=== PATIENT | female | born 1955 | race Caucasian/White ===

== ENCOUNTER 2024-03-25 00:10 | Day surgery (SDC) | payer MEDICARE, SELFPAY ==
[2024-03-09 13:06] VITALS: BMI 23.1
[2024-03-25 06:18] VITALS: BMI 22.5
[2024-03-25] MEDS: LACTATED RINGERS 1,000 ML 150 ML IV CONT (06:28)
--- NOTE | 2024-03-25 07:23 | P.PNAN_ITS ---
Anes - Initial Pre Proc Eval Procedure: Operation Date: 03/25/24 07:30 Proposed Procedures p Colonoscopy - Kai Ramesh MD Date/Time: 03/25/24 07:23 Surgeon: Kai Ramesh MD Pre Op Diagnosis: other fecal abnormalities, neoplasm screening Patient Data Age: 68 Gender: F Height: 1.68 m Weight: 63.3 kg Allergies Allergy/AdvReac Type Severity Reaction Status Date / Time No Known Allergies Verified 03/25/24 06:16 Home Medications Medication Instructions Recorded Confirmed Type alendronate 70 mg-cholecalciferol 1 tablet PO WEEKLY 03/09/24 03/25/24 History (vitamin D3) 2,800 unit tablet aspirin 81 mg tablet,delayed 81 mg PO DAILY 03/09/24 03/25/24 History release atorvastatin 10 mg tablet 10 mg PO DAILY 03/09/24 03/25/24 History multivitamin with minerals-folic 1 tablet PO DAILY 03/09/24 03/25/24 History acid 80 mcg chewable tablet (Centrum Adult 50 Plus) Patient hx anesthesia problems: none Family hx anesthesia problems: none Results Review: All pre-operative results and documents have been reviewed as part of the pre- operative evaluation. PMF Social History Social History Smoking packs per day: 1.5 Smoking cigarettes per day: 30.0 Additional smoking assessment comments: age 40 Alcohol intake: current Alcohol use details: rarely Living arrangements: with family Spiritual care concerns: No Anes - Eval Final PreProcedure Day of Procedure 03/25/24 07:23 Patient weight: normal Heart: regular rate and rhythm Lungs: clear to auscultation Airway: Mallampati scale class II Neurological: alert and oriented Last oral intake: >/= 8 hours ASA classification: II Emergent: no Anesthetic plan: proceed Anesthesia type and monitoring: general GIVS and standard monitoring Results Review: All pre-operative results and documents have been reviewed as part of the pre- operative evaluation. Informed Consent: The patient's anesthetic plan and its attendant risks and benefits were discussed with the patient/family/POA. Questions were solicited and answers provided to the satisfaction of the patient/family/POA.
--- NOTE | 2024-03-25 07:27 | PM.HPGS ---
History of Present Illness History of Present Illness Consent: Risks, benefits, and alternatives have been discussed and questions answered. Patient agrees to proceed with procedure. Chief complaint: other fecal abnormalities, neoplasm screening Narrative: Marylin Solis is a 68 year old female with last colonoscopy 10 years ago, cologuard + Review of Systems Review of Systems: All systems reviewed & are unremarkable except as noted in HPI and below PMFSH Past Medical History Medical History (Updated 03/25/24 @ 07:28 by Kai Ramesh MD) Positive colorectal cancer screening using Cologuard test Social History Social History Smoking packs per day: 1.5 Smoking cigarettes per day: 30.0 Additional smoking assessment comments: age 40 Alcohol intake: current Alcohol use details: rarely Living arrangements: with family Spiritual care concerns: No Meds Home Medications and Allergies Home Medications Medication Instructions Recorded Confirmed Type alendronate 70 mg-cholecalciferol 1 tablet PO WEEKLY 03/09/24 03/25/24 History (vitamin D3) 2,800 unit tablet aspirin 81 mg tablet,delayed 81 mg PO DAILY 03/09/24 03/25/24 History release atorvastatin 10 mg tablet 10 mg PO DAILY 03/09/24 03/25/24 History multivitamin with minerals-folic 1 tablet PO DAILY 03/09/24 03/25/24 History acid 80 mcg chewable tablet (Centrum Adult 50 Plus) Allergies Allergy/AdvReac Type Severity Reaction Status Date / Time No Known Allergies Verified 03/25/24 06:16 Exam Const: General: comfortable and no acute distress HENMT: Face/Nose/Sinus: Normal nares present Eyes: General: appearance normal, both eyes and all related structures Neck: Neck: no JVD Resp: Auscultation: clear to auscultation bilaterally Cardio: Rate: regular rate Rhythm: regular rhythm GI: Inspection: non-distended GI Palp: Yes Soft to palpation Skin: General skin exam: normal color Neuro: General: gait normal Speech: normal speech Extrem: General: normal to inspection Psych: Mental Status: mental status grossly normal Assessment and Plan Assessment and plan (1) Positive colorectal cancer screening using Cologuard test: Code(s): R19.5 - Other fecal abnormalities Status: Acute Assessment and Plan: colonoscopy
[2024-03-25 07:39] VITALS: BP 108/53; PULSE 68; RESP 16; O2SAT 100
[2024-03-25 07:49] VITALS: BP 95/49; PULSE 59; RESP 15; O2SAT 100
[2024-03-25 07:56] VITALS: BP 110/56; PULSE 68; RESP 22; O2SAT 100
== END 2024-03-25 08:06 | disposition home or self-care (01) ==
PROVIDERS: PCP Internal Medicine; Visit Provider Internal Medicine Gastroenterology
PROC: 0DJD8ZZ Inspection of Lower Intestinal Tract, Via Natural or Artificial Opening Endoscopic (ICD-10-PCS; CPT 45378; principal; 2024-03-25 07:30)
DX: Z12.11 Encounter for screening for malignant neoplasm of colon (principal); R19.5 Other fecal abnormalities; D12.4 Benign neoplasm of descending colon; K64.8 Other hemorrhoids; Z79.82 Long term (current) use of aspirin
CPT/HCPCS: 45380; 88305; J2704; J7120

== ENCOUNTER 2024-08-09 06:59 | Outpatient (CLI) | payer MEDICARE, SELFPAY ==
--- NOTE | ~2024-08-09 | DEXA_ITS ---
Bone Density Report Name: HANS SAUCEDO Age: 69 Sex: Female Ethnicity: White Date of : 1955 Indication: postmenopausal; screening for osteoporosis; parental hip fracture; height loss; hysterectomy; Referring Provider: MARIAHARMAN Study: Bone densitometry was performed. Exam Date: August 09, 2024 Accession number: [id number] Bone Density: Region BMD T-score Z-score Classification AP Spine(L1-L4) 0.921 -1.1 0.8 Osteopenia Femoral Neck (Left) 0.764 -0.8 0.9 Normal Total Hip (Left) 0.773 -1.4 0.0 Osteopenia Femoral Neck (Right) 0.694 -1.4 0.3 Osteopenia Total Hip (Right) 0.776 -1.4 0.0 Osteopenia Femoral Neck Mean 0.729 -1.1 0.6 Osteopenia Total Hip Mean 0.774 -1.4 0.0 Osteopenia World Health Organization criteria for BMD impression classify patients as: Normal (T-score at or above -1.0), Osteopenia (T-score between -1.0 and -2.5), or Osteoporosis (T-score at or below -2.5). 10-year Fracture Risk(1): Major Osteoporotic Fracture 15% Hip Fracture 1.8% Reported Risk Factors: [place] (), Neck BMD=0.694, BMI=23.5, parental fracture (1) FRAX(R) Version 3.08. Fracture probability calculated for an untreated patient. Fracture probability may be lower if the patient has received treatment. Clinical Information Provided by Patient: Parent has had a hip fracture Has used the following medications: Vitamin D, multi Has the following medical conditions: Hysterectomy Patient maximum height was 66 Menopause Age: 51 No regular weight bearing exercise Drinks caffeinated beverages Onset of menses at age 13 Number of children 3 Impression: The patient has low bone mass, based on the Left Total Hip T-score. The patient has risk factors, including: parental hip fracture. Discussion: BONE DENSITY IS LOW AT ONE OR MORE SKELETAL SITES. This patient's lowest T-score is low at one or more skeletal sites. It meets the World Health Organization's (WHO) criteria for ?low bone mass? (T-score between -1.0 and -2.5). The patient's 10-year risk of fracture as calculated by FRAX is less than the threshold where pharmacological therapy is recommended by the National Osteoporosis Foundation (NOF). However, all treatment decisions require clinical judgment and consideration of individual patient factors, including patient preferences, comorbidities, previous drug use, risk factors not captured in the FRAX model (e.g., frailty, falls, vitamin D deficiency, increased bone turnover, interval significant decline in bone density) and possible under or overestimation of fracture risk by FRAX. The patient should follow a healthful lifestyle (good nutrition with adequate calcium and vitamin D, and appropriate weight-bearing exercise). Follow-Up: Consider repeating this study in 2 to 3 years to reassess this patient's status, or sooner if there is some new clinical indication. Reported by: DEBO on 08/09/2024 7:44:00 AM. Reviewed, dictated and finalized at location A.
== END 2024-08-09 07:00 | disposition home or self-care (01) ==
PROVIDERS: PCP Internal Medicine; Visit Provider Internal Medicine
DX: Z78.0 Asymptomatic menopausal state (principal); M85.89 Other specified disorders of bone density and structure, multiple sites
CPT/HCPCS: 77080

== ENCOUNTER 2024-11-24 08:23 | Outpatient (CLI) | payer MEDICARE, SELFPAY ==
--- NOTE | ~2024-11-24 | US_ITS ---
EXAM: ABDOMEN ULTRASOUND HISTORY: LFT ELEVATION COMPARISON: None FINDINGS: LIVER: The liver is unremarkable in echogenicity and size measuring 16 cm in longitudinal dimension. The contour of the liver surface is smooth. The portal vein is patent, demonstrating hepatopedal flow. GALLBLADDER: No stones are identified within the gallbladder, which is otherwise unremarkable. No gallbladder wall thickening or pericholecystic fluid. BILE DUCTS: Common bile duct measures 4.1mm. PANCREAS: Limited evaluation of the pancreas secondary to overlying bowel gas IMPRESSION: Limited evaluation of the pancreas secondary to overlying bowel gas. Examination is otherwise unremarkable, as detailed above. Reviewed, dictated and finalized at location A. GER OF SUPPLY CHAIN
== END 2024-11-24 08:24 | disposition home or self-care (01) ==
LOC: GOSHIMG 08:23
PROVIDERS: PCP Internal Medicine; Visit Provider Internal Medicine
DX: R79.89 Other specified abnormal findings of blood chemistry (principal)
CPT/HCPCS: 76705

== ENCOUNTER 2025-04-10 10:35 | Outpatient (CLI) | payer MEDICARE, SELFPAY ==
--- OUTSIDE RECORDS SUMMARY | 2025-04-10 10:49 | XMS_ITS | Clinical Summary ---
Author Organization [facility] Address [address] [place] [address] Phone Care Team Providers Care Team Psychologist Name Role Phone Tom Black MD Primary Care Provider [phone] Social History Tobacco Use Types Packs/Day Years Used Date Smoking Tobacco: Never Assessed Comments No Sex and Gender Information Value Date Recorded Sex Assigned at Not on file Legal Sex Female 3:08 PM ROPEMAN Gender Identity Not on file Sexual Orientation Not on file Plan of Treatment Health Maintenance Due Date Last Done Comments DEXA Bone Density 1955 Hepatitis C Virus (HCV) Screening 1955 Colonoscopy 2001 Colorectal Cancer Screening 2001 Cologuard 2006 Immunochemical Fecal Occult Blood 2006 Mammogram 11/15/2022 11/15/2020 Influenza Immunization (#1) 2024 SARS-COV-2 Immunization ( season) 2024 06/15/2023, 06/18/2022, 07/26/2021, Additional history exists Respiratory Syncytial Virus (RSV) Immunization (Adult) (1 - 1-dose 75+ series) 2031 DTaP/Tdap/Td Immunization Discontinued 04/29/2021 TdaP Immunization Completed 04/29/2021 Pneumococcal Immunization (50+ years) Completed 05/19/2022 Pneumococcal Immunization Combined Discontinued 05/19/2022 Zoster Immunization Completed 03/31/2023, Hepatitis B Immunization Aged Out No longer eligible based on patient's age to complete this topic Meningococcal Immunization (ACWY) Aged Out No longer eligible based on patient's age to complete this topic Rotavirus Immunization Aged Out No lo nger eligible based on patient's age to complete this topic Procedures Procedure Name Priority Date/Time Associated Diagnosis Comments LATANYA SCREENING NEAL W IMPL DIGITAL W CAD W FLAVIA Routine 11/15/2020 9:55 AM ROPEMAN Encounter for screening mammogram for malignant neoplasm of breast from Last 3 Months or Most Recently Relevant to Health Maintenance Results * LATANYA SCREENING NEAL W IMPL DIGITAL W CAD W FLAVIA (11/15/2020 9:55 AM ROPEMAN) Anatomical Region Laterality Modality breast Bilateral Mammography 11/15/2020 9:07 AM ROPEMAN Addenda Addendum by Debbie Price MD on 02/15/2021 1:22 PM CDT THIS REPORT HAS BEEN AMENDED. AMENDMENT: 02/15/2021 Debbie Price M.D. 2D digital mammographic views, as well as 3D digital tomosynthesis were performed in the CC and MLO projections. Amended BI-RADS: 1 Negative - LATANYA SCREENING NEAL W IMPL DIGITAL W CAD W FLAVIA BILATERAL DIGITAL SCREENING MAMMOGRAM 3D/2D WITH CAD WITH MEDIOLATERAL OBLIQUE CRANIOCAUDAL: 11/15/2020 The study was acquired using digital technology and interpreted from soft copy. Current study was also evaluated with ICAD version 7.2. 2D digital mammographic views, as well as 3D digital tomosynthesis were performed in the CC and MLO projections. CLINICAL: Routine screening. Patient has no complaints. Personal history of cervical cancer. No family history of breast cancer. COMPARISONS: Comparison is made to exam dated: 10/29/2017 [facility]. BREAST TISSUE:There are scattered fibroglandular densities in both breasts. FINDINGS: Bilateral breast implants are stable. No significant masses, calcifications, or other findings are seen in either breast. There has been no significant interval change. IMPRESSION: BI-RAD 1 NEGATIVE There is no mammographic evidence of malignancy. A 1 year screening mammogram is recommended. The patient has been or will be contacted. The patient will be entered into a reminder system with a target due date of 1 year for her next screening exam. Electronically signed by: Debbie parker/penrad:11/23/2020 08:22:12 Terrazzo Helper: Gifty PRADO)(Ileana), [facility]: Normal Exam Reading location: [facility] BI-RADS: 1 Negative Narrative 11/23/2020 10:32 AM ROPEMAN - [facility] SCREENING NEAL W IMPL DIGITAL W CAD W FLAVIA BILATERAL DIGITAL SCREENING MAMMOGRAM 3D/2D WITH CAD WITH MEDIOLATERAL OBLIQUE CRANIOCAUDAL: 11/15/2020 The study was acquired using digital technology and interpreted from soft copy. Current study was also evaluated with ICAD version 7.2. CLINICAL: Routine screening. Patient has no complaints. Personal history of cervical cancer. No family history of breast cancer. COMPARISONS: Comparison is made to exam dated: 10/29/2017 [facility]. BREAST TISSUE:There are scattered fibroglandular densities in both breasts. FINDINGS: Bilateral breast implants are stable. No significant masses, calcifications, or other findings are seen in either breast. There has been no significant interval change. IMPRESSION: BI-RAD 1 NEGATIVE There is no mammographic evidence of malignancy. A 1 year screening mammogram is recommended. The patient has been or will be contacted. The patient will be entered into a reminder system with a target due date of 1 year for her next screening exam. Electronically signed by: Debbie Price M.D. ab/penrad:11/23/2020 08:22:12 Terrazzo Helper: Gifty PRADO)(Ileana), [facility]: Normal Exam Reading location: [facility] BI-RADS: 1 Negative Procedure Note Debbie Price MD - 11/23/2020 - [facility] SCREENING NEAL W IMPL DIGITAL W CAD W FLAVIA BILATERAL DIGITAL SCREENING MAMMOGRAM 3D/2D WITH CAD WITH MEDIOLATERAL OBLIQUE CRANIOCAUDAL: 11/15/2020 The study was acquired using digital technology and interpreted from soft copy. Current study was also evaluated with ICAD version 7.2. CLINICAL: Routine screening. Patient has no complaints. Personal history of cervical cancer. No family history of breast cancer. COMPARISONS: Comparison is made to exam dated: 10/29/2017 [facility]. BREAST TISSUE:There are scattered fibroglandular densities in both breasts. FINDINGS: Bilateral breast implants are stable. No significant masses, calcifications, or other findings are seen in either breast. There has been no significant interval change. IMPRESSION: BI-RAD 1 NEGATIVE There is no mammographic evidence of malignancy. A 1 year screening mammogram is recommended. The patient has been or will be contacted. The patient will be entered into a reminder system with a target due date of 1 year for her next screening exam. Electronically signed by: Debbie parker/melchor:11/23/2020 08:22:12 Terrazzo Helper: Gifty Davidson RT(R)(M), [facility] letter sent: Normal Exam Reading location: [facility] BI-RADS: 1 Negative Tom Black MD IMG MAMMO ORDERABLES Edited R esult - Final from Last 3 Months or Most Recently Relevant to Health Maintenance Insurance MEDICARE C [facility] Care Teams Team Psychologist Relationship Specialty Start Date End Date Tom Black MD [address] [place] [address] PCP - General Internal Medicine 10/24/20
--- OUTSIDE RECORDS SUMMARY | 2025-04-10 10:49 | XMS_ITS | Data Portability ---
Author Organization [facility] NITESHNitza Address [address] [place] [address] Care Team Providers Care Residence Director Name Role Phone TOM SIFUENTES Primary Care Provider Assessment No assessment recorded. Plan of Treatment Reminders Order Date Submit Date Provider Last Modified By Organization Details Last Modified Time Details Appointments None recorded. Lab CBC w/ auto diff 2023 024 [facility], [address] [place] [address], [address], 4 04:11:19 ferritin, serum or plasma 2023 024 [facility], [address] [place] [address], [address], 4 04:11:19 iron + total iron-bindin g capacity (TIBC), serum 2023 024 [facility], [address] [place] [address], [address], 4 04:11:17 TSH, ultra-sensi tive, serum 2023 024 [facility], [address] [place] [address], [address], 4 04:11:17 lipid panel, serum 2023 024 [facility], [address] [place] [address], [address], 4 04:11:15 CMP, serum or plasma 2023 024 [facility], [address] [facility], [facility] [address], [place], [address], 4 04:11:16 TSH, ultra-sensi tive, serum 2023 024 [facility], [address] [facility], [facility], [place], [address], 4 04:09:15 fecal occult blood, immunoassay , stool 2023 024 [facility], [address] [facility], [facility], [place], [address], 4 17:35:20 lipid panel, serum 2023 024 [facility], [address] [facility], [facility], [place], [address], 4 04:09:14 CMP, serum or plasma 2023 024 [facility], [address] [facility], [facility], [place], [address], 4 04:09:14 lipid panel, serum 2022 023 [facility], [address] [facility], [facility], [place], [address], 3 20:08:29 CMP, serum or plasma 2022 023 [facility], [address] [facility], [facility], [place], [address], 3 20:08:29 TSH, ultra-sensi tive, serum 2022 023 [facility], [address] [facility], [facility], [place], [address], 3 03:07:51 TSH + free T4, serum 2022 023 [facility], [address], [place], [address], 3 04:08:38 lipid panel, serum 2022 023 [facility], [address], [place], [address], 3 20:08:53 CMP, serum or plasma 2022 023 [facility], [address], [place], [address], 3 20:08:54 vitamin D, 25-hydroxy, total, serum 2021 022 [facility], [address], [place], [address], 2 07:11:04 lipid panel, serum 2021 022 [facility], [address], [place], [address], 07:11:02 CMP, serum or plasma 2021 022 [facility], [address], [place], [address], 2 07:11:02 HbA1c (hemoglobin A1c), blood 2021 022 [facility], [address], [place], [address], 2 07:11:03 TSH, ultra-sensi tive, serum 2021 022 [facility], [address], [place], [address], 07:11:[address] referral 2022 023 FLORENTINO Huertas MD (Dermatology) , [address] [facility] , [address], [place], [address], 12:40:09 Procedures None recorded. Surgeries None recorded. Imaging bone density 2023 024 [facility] (Imaging), [address], [place], [address], 07:54:00 Medication Orders None recorded. Patient TargetsNo targets recorded. Patient Instructions Encounter Date Encounter Id Patient Instructions Last Modified By Organization Details Last Modified Time 05/19/2022 [id number] eating healthy foods: care instructions nsuthan Not available 05/19/2022 09:11:37 f/u prn /pneumo 20 nsuthan Not available 05/19/2022 09:11:34 10/27/2022 [id number] labs /f/u in 6 month nsuthan Not available 10/27/2022 09:10:49 04/27/2023 [id number] f/u in 6 month nsuthan Not available 04/27/2023 08:56:01 11/02/2023 [id number] f/u in 6 month nsuthan Not available 11/02/2023 09:02:24 05/09/2024 [id number] f/u in 6 month nsuthan Not available 05/09/2024 08:52:50 Reason for Referral Intake Coordinator Referral for S eborrheic keratosis Referring Physician: Moon Sifuentes, Internal Medicine, Encounter Date: 04/27/2023 Results Created Date Observation Date Name Description Value Unit Range Abnormal Flag Note LastModifiedBy Organization Detail LastModifiedTime 05/19/20 22 05/20/2022 COMP. METAB OLIC PANEL (14) glucose 89 mg/dL 65-99 Not Available [facility] ([facility]) [address] [facility], [place], [address], 05/20/2022 07:11:02 05/19/20 22 05/20/2022 COMP. METAB OLIC PANEL (14) BUN 11 mg/dL 8-27 Not Available [facility] ([facility]) [address] [place], [address], 05/20/2022 07:11:02 05/19/20 22 05/20/2022 COMP. METAB OLIC PANEL (14) creatinine 0.90 mg/dL 0.57-1 .00 Not Available [facility] ([facility]) [address] [facility] [place], [address], 05/20/2022 07:11:02 05/19/20 22 05/20/2022 COMP. METAB OLIC PANEL (14) eGFR 71 mL/mi n/1.7 3 >59 Not Available [facility] ([facility]) [address] [facility] [place], [address], 05/20/2022 07:11:02 05/19/20 22 05/20/2022 COMP. METAB OLIC PANEL (14) BUN/creatini ne ratio 12 12-28 Not Available [facility]) [address] [facility] [place], [address], 05/20/2022 07:11:02 05/19/20 22 05/20/2022 COMP. METAB OLIC PANEL (14) sodium 142 mmol/ L 134-14 4 Not Available [facility] ([facility]) [address] [facility] [place], [address], 05/20/2022 07:11:02 05/19/20 22 05/20/2022 COMP. METAB OLIC PANEL (14) potassium 4.2 mmol/ L 3.5-5. 2 Not Available [facility] ([facility]) [address] [facility] [place], [address], 05/20/2022 07:11:02 05/19/20 22 05/20/2022 COMP. METAB OLIC PANEL (14) chloride 102 mmol/ L 96-106 Not Available [facility] ([facility]) [address] [facility], [address], 05/20/2022 07:11:02 05/19/20 22 05/20/2022 COMP. METAB OLIC PANEL (14) carbon dioxide, total 25 mmol/ L Not Available [facility] ([facility]) [address], [place], [address], 05/20/2022 07:11:02 05/19/20 22 05/20/2022 COMP. METAB OLIC PANEL (14) calcium 9.6 mg/dL 8.7-10 .3 Not Available [facility] ([facility]) [address] [place], [address], 05/20/2022 07:11:02 05/19/20 22 05/20/2022 COMP. METAB OLIC PANEL (14) protein, total 6.9 g/dL 6.0-8. 5 Not Available [facility] ([facility]) [address], [place], [address], 05/20/2022 07:11:02 05/19/20 22 05/20/2022 COMP. METAB OLIC PANEL (14) albumin 4.7 g/dL 3.8-4. 8 Not Available [facility] ([facility]) [address] [place], [address], 05/20/2022 07:11:02 05/19/20 22 05/20/2022 COMP. METAB OLIC PANEL (14) globulin, total 2.2 g/dL 1.5-4. 5 Not Available [facility] ([facility]) [address] [place], [address], 05/20/2022 07:11:02 05/19/20 22 05/20/2022 COMP. METAB OLIC PANEL (14) A/G ratio 2.1 1.2-2. 2 Not Available [facility] ([facility]) [address], [address], 05/20/2022 07:11:02 05/19/20 22 05/20/2022 COMP. METAB OLIC PANEL (14) bilirubin, total 1.0 mg/dL 0.0-1. 2 Not Available [facility] ([facility]) [address] [facility] [place], [address], 05/20/2022 07:11:02 05/19/20 22 05/20/2022 COMP. METAB OLIC PANEL (14) alkaline phosphatase 86 IU/L 44-121 Not Available [facility]) [address] [facility] [place], [address], 05/20/2022 07:11:02 05/19/20 22 05/20/2022 COMP. METAB OLIC PANEL (14) AST (SGOT) 18 IU/L 0-40 Not Available [facility] ([facility]) [address] [facility] [place], [address], 05/20/2022 07:11:02 05/19/20 22 05/20/2022 COMP. METAB OLIC PANEL (14) ALT (SGPT) 27 IU/L 0-32 Not Available [facility] ([facility]) [address] [place], [address], 05/20/2022 07:11:02 05/19/20 22 05/20/2022 LIPID PANEL cholesterol, total 256 mg/dL 100-19 9 above high normal Not Available [facility] ([facility]) [address] [facility] [place], [address], 05/20/2022 07:11:02 05/19/20 22 05/20/2022 LIPID PANEL triglyceride s 307 mg/dL 0-149 above high normal Not Available [facility] ([facility]) [address] [place], [address], 05/20/2022 07:11:02 05/19/20 22 05/20/2022 LIPID PANEL HDL cholesterol 45 mg/dL >39 Not Available [facility]) [address] [place], [address], 05/20/2022 07:11:02 05/19/20 22 05/20/2022 LIPID PANEL VLDL cholesterol nunu 57 mg/dL 5-40 above high normal Not Available [facility] ([facility]) [address] [facility] [place], [address], 05/20/2022 07:11:02 05/19/20 22 05/20/2022 LIPID PANEL LDL chol calc ([facility]) 154 mg/dL 0-99 above high normal Not Available [facility]) [address] [facility] [place], [address], 05/20/2022 07:11:02 05/19/20 22 05/20/2022 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 6 above high normal Predi abete s: 5.7 - 6.4 Diabe erick: >6.4 Glyce namita contr ol for adult s with diabe erick: <7.0 Not Available [facility] ([facility]) [address] [place], [address], 05/20/2022 07:11:03 05/19/20 22 05/20/2022 TSH TSH 5.050 uIU/m L 0.450- 4.500 above high normal Not Available [facility] ([facility]) [address] [place], [address], 05/20/2022 07:11:03 05/19/20 22 05/20/2022 VITAM IN D, 25-HY DROXY vitamin D, 25-hydroxy 78.5 NG/mL 30.0-1 00.0 Vitam in D defic iency has been defin ed by the Insti tute of Medic ine and an Endoc rine Socie ty pract ice guide line as a level of serum 25-OH vitam in D less than 20 ng/mL (1,2) . The Endoc rine Socie ty [facility] defin e vitam in D insuf ficie ncy as a level betwe en 21 and 29 ng/mL (2). 1. IOM (Inst itute of Medic ine). 2010. Dieta ry refer ence intak es for calci um and D. Roseanna dyson [place]: [facility] Press . 2. Vita robledo MF, Christiano douglass [place], Swapna off-F bob i MCHUGH, et al. Evalu ation , treat ment, and preve ntion of vitam in D defic iency : an Endoc rine Socie ty clini nunu pract ice guide line. JCEM. 2010; 96(7) :1911 -30. Not Available [facility] ([facility]) [address] [facility], [place], [address], 05/20/2022 07:11:04 10/27/19 23 10/27/2022 LIPID PANEL cholesterol, total 161.7 mg/dL 140.0- 200.0 Not Available [facility] Department [address] [place], [address], 10/27/2022 20:08:53 10/27/19 23 10/27/2022 LIPID PANEL triglyceride s 138 mg/dL <=150 Not Available [facility] Department [address] [place], [address], 10/27/2022 20:08:53 10/27/19 23 10/27/2022 LIPID PANEL HDL cholesterol 50.5 mg/dL 40.0-1 00.0 Not Available [facility] [address] [place], [address], 10/27/2022 20:08:53 10/27/19 23 10/27/2022 LIPID PANEL VLDL cholesterol nunu 27.60 mg/dL 5.00-4 0.00 Not Available [facility] [address] [place], [address], 10/27/2022 20:08:53 10/27/19 23 10/27/2022 LIPID PANEL LDL chol calc (nih) 87.0 Not Available [facility] Department [address] [place], [address], 10/27/2022 20:08:53 10/27/19 23 10/27/2022 COMP. METAB OLIC PANEL (14) glucose 104 mg/dL 65-99 above high normal ANION GP 20.0 mmol/ L N OSMOL 291.0 mOsM/ L N REFER ENCE RANGE : 275.0 -301. 0 Not Available [facility] [address] [place], [address], 10/27/2022 20:08:54 10/27/19 23 10/27/2022 COMP. METAB OLIC PANEL (14) BUN 12 mg/dL 8-26 Not Available [facility] [address] [place], [address], 10/27/2022 20:08:54 10/27/19 23 10/27/2022 COMP. METAB OLIC PANEL (14) creatinine 0.81 mg/dL 0.50-1 .40 Not Available [facility] [address] [place], [address], 10/27/2022 20:08:54 10/27/19 23 10/27/2022 COMP. METAB OLIC PANEL (14) eGFR 80 mL/mi n/1.7 3 >=60 Not Available [facility] [address] [place], [address], 10/27/2022 20:08:54 10/27/19 23 10/27/2022 COMP. METAB OLIC PANEL (14) BUN/creatini ne ratio 15.3 Not Available [facility] Department [address] [place], [address], 10/27/2022 20:08:54 10/27/19 23 10/27/2022 COMP. METAB OLIC PANEL (14) sodium 146.1 mmol/ L 136.0- 144.0 above high normal Not Available [facility] [address] [place], [address], 10/27/2022 20:08:54 10/27/19 23 10/27/2022 COMP. METAB OLIC PANEL (14) potassium 4.1 mmol/ L 3.5-5. 3 Not Available [facility] [address] [place], [address], 10/27/2022 20:08:54 10/27/19 23 10/27/2022 COMP. METAB OLIC PANEL (14) chloride 105 mmol/ l 101-11 1 Not Available [facility] [address] [place], [address], 10/27/2022 20:08:54 10/27/19 23 10/27/2022 COMP. METAB OLIC PANEL (14) carbon dioxide, total 24.6 mmol/ L 21.0-3 2.0 Not Available [facility] [address] [place], [address], 10/27/2022 20:08:54 10/27/19 23 10/27/2022 COMP. METAB OLIC PANEL (14) calcium 9.8 mg/dL 8.2-10 .0 Not Available [facility] [address] [place], [address], 10/27/2022 20:08:54 10/27/19 23 10/27/2022 COMP. METAB OLIC PANEL (14) protein, total 7.1 g/dL 6.7-8. 2 Not Available [facility] [address] [place], [address], 10/27/2022 20:08:54 10/27/19 23 10/27/2022 COMP. METAB OLIC PANEL (14) albumin 4.5 g/dL 3.5-5. 5 Not Available [facility] [address] [place], [address], 10/27/2022 20:08:54 10/27/19 23 10/27/2022 COMP. METAB OLIC PANEL (14) globulin, total 2.6 g/dL 1.5-4. 5 Not Available [facility] [address] [place], [address], 10/27/2022 20:08:54 10/27/19 23 10/27/2022 COMP. METAB OLIC PANEL (14) A/G ratio 1.8 Not Available [facility] Department [address] [place], [address], 10/27/2022 20:08:54 10/27/19 23 10/27/2022 COMP. METAB OLIC PANEL (14) bilirubin, total 1.0 mg/dL 0.0-1. 2 Not Available [facility] [address] [place], [address], 10/27/2022 20:08:54 10/27/19 23 10/27/2022 COMP. METAB OLIC PANEL (14) alkaline phosphatase 96.8 IU/L 42.0-1 21.0 Not Available [facility] [address] [place] [address], [address], 10/27/2022 20:08:54 10/27/19 23 10/27/2022 COMP. METAB OLIC PANEL (14) AST (SGOT) 25.0 U/L 10.0-4 2.0 Not Available [facility] [address] [place] [address], [address], 10/27/2022 20:08:54 10/27/19 23 10/27/2022 COMP. METAB OLIC PANEL (14) ALT (SGPT) 33.5 U/L 10.0-6 0.0 Not Available [facility] [address] [place], [address], 10/27/2022 20:08:54 10/27/19 23 10/28/2022 TSH+F REE T4 TSH 3.780 uIU/m L 0.450- 4.500 Not Available [facility] ([facility]) [address] [place], [address], 10/28/2022 04:08:38 10/27/19 23 10/28/2022 TSH+F REE T4 T4,free(dire ct) 1.13 NG/dL 0.82-1 .77 Not Available [facility] ([facility]) [address] [place], [address], 10/28/2022 04:08:38 04/27/20 23 04/27/2023 LIPID PANEL cholesterol, total 183 mg/dL 100-19 9 Not Available [facility] [address] [place], [address], 04/27/2023 20:08:29 04/27/20 23 04/27/2023 LIPID PANEL triglyceride s 236 mg/dL 0-149 above high normal Not Available [facility] [address] [place], [address], 04/27/2023 20:08:29 04/27/20 23 04/27/2023 LIPID PANEL HDL cholesterol 48 mg/dL 40-999 Not Available [facility] Department [address] [place], [address], 04/27/2023 20:08:29 04/27/20 23 04/27/2023 LIPID PANEL VLDL cholesterol nunu 47 mg/dL 5-40 above high normal Not Available [facility] [address] [place], [address], 04/27/2023 20:08:29 04/27/20 23 04/27/2023 LIPID PANEL LDL chol calc ([facility]) 124 mg/dL 0-99 above high normal Not Available [facility] [address] [place], [address], 04/27/2023 20:08:29 04/27/20 23 04/27/2023 COMP. METAB OLIC PANEL (14) glucose 80 mg/dL 70-99 Not Available [facility] [address] [place], [address], 04/27/2023 20:08:29 04/27/20 23 04/27/2023 COMP. METAB OLIC PANEL (14) BUN 12 mg/dL 8-27 Not Available [facility] [address] [place], [address], 04/27/2023 20:08:29 04/27/20 23 04/27/2023 COMP. METAB OLIC PANEL (14) creatinine 0.73 mg/dL 0.76-1 .27 below low normal Not Available [facility] [address] [place] [address], [address], 04/27/2023 20:08:29 04/27/20 23 04/27/2023 COMP. METAB OLIC PANEL (14) eGFR 91 >=60 Units for eGFR value s are mL/mi n/1.7 3 The eGFR Calcu latio n has not been valid ated for patie nts under the age of 18. If test resul ts are displ ayed for a patie nt under the age of 18, disre jair that value . Not Available [facility] [address] [place], [address], 04/27/2023 20:08:29 04/27/20 23 04/27/2023 COMP. METAB OLIC PANEL (14) BUN/creatini ne ratio 16 10-28 Not Available [facility] Department [address] [place], [address], 04/27/2023 20:08:29 04/27/20 23 04/27/2023 COMP. METAB OLIC PANEL (14) sodium 144 mmol/ L 134-14 4 Not Available [facility] [address] [place], [address], 04/27/2023 20:08:29 04/27/20 23 04/27/2023 COMP. METAB OLIC PANEL (14) potassium 4.1 mmol/ L 3.5-5. 2 Not Available [facility] [address] [place], [address], 04/27/2023 20:08:29 04/27/20 23 04/27/2023 COMP. METAB OLIC PANEL (14) chloride 104 mmol/ L 96-106 Not Available [facility] [address] [place], [address], 04/27/2023 20:08:29 04/27/20 23 04/27/2023 COMP. METAB OLIC PANEL (14) carbon dioxide, total 29 mmol/ L 20-29 Not Available [facility] [address] [place], [address], 04/27/2023 20:08:29 04/27/20 23 04/27/2023 COMP. METAB OLIC PANEL (14) calcium 10.1 mg/dL 8.7-10 .3 Not Available [facility] [address] [place], [address], 04/27/2023 20:08:29 04/27/20 23 04/27/2023 COMP. METAB OLIC PANEL (14) protein, total 7.1 g/dL 6.0-8. 5 Not Available [facility] [address] [place], [address], 04/27/2023 20:08:29 04/27/20 23 04/27/2023 COMP. METAB OLIC PANEL (14) albumin 4.6 g/dL 3.8-4. 8 Not Available [facility] [address] [place] [address], [address], 04/27/2023 20:08:29 04/27/20 23 04/27/2023 COMP. METAB OLIC PANEL (14) globulin, total 2.5 g/dL 1.5-4. 5 Not Available [facility] [address] [place] [address], [address], 04/27/2023 20:08:29 04/27/20 23 04/27/2023 COMP. METAB OLIC PANEL (14) A/G ratio 1.8 1.2-2. 2 Not Available [facility] [address] [place] [address], [address], 04/27/2023 20:08:29 04/27/20 23 04/27/2023 COMP. METAB OLIC PANEL (14) bilirubin, total 1.1 mg/dL 0.0-1. 2 Not Available [facility] [address] [place] [address], [address], 04/27/2023 20:08:29 04/27/20 23 04/27/2023 COMP. METAB OLIC PANEL (14) alkaline phosphatase 94 IU/L 44-121 Not Available [facility] [address] [place] [address], [address], 04/27/2023 20:08:29 04/27/20 23 04/27/2023 COMP. METAB OLIC PANEL (14) AST (SGOT) 20 IU/L 0-40 Not Available [facility] Department [address] [place] [address], [address], 04/27/2023 20:08:29 04/27/20 23 04/27/2023 COMP. METAB OLIC PANEL (14) ALT (SGPT) 25 IU/L 0-32 Not Available [facility] [address] [place] [address], [address], 04/27/2023 20:08:29 04/27/20 23 04/28/2023 TSH TSH 5.940 uIU/m L 0.450- 4.500 above high normal Not Available [facility] ([facility]) [address] [place], [address], 04/28/2023 03:07:51 07/30/2007/31/2023 TSH+F REE T4 TSH 4.160 uIU/m L 0.450- 4.500 Not Available [facility] ([facility]) [address] [place], [address], 07/31/2023 04:17:34 07/30/20 23 07/31/2023 TSH+F REE T4 T4,free(dire ct) 1.20 NG/dL 0.82-1 .77 Not Available [facility] ([facility]) [address] [place], [address], 07/31/2023 04:17:34 07/30/20 23 07/31/2023 THYRO ID PEROX IDASE (TPO) AB thyroid peroxidase (tpo) Ab <9 IU/mL 0-34 Not Available [facility] [address] [place], [address], 07/31/2023 04:17:35 11/02/19 24 11/03/2023 LIPID PANEL cholesterol, total 187 mg/dL 100-19 9 Not Available [facility] ([facility] [address] [place], [address], 11/03/2023 04:09:13 11/02/19 24 11/03/2023 LIPID PANEL triglyceride s 284 mg/dL 0-149 above high normal Not Available [facility] ([facility]) [address] [place], [address], 11/03/2023 04:09:13 11/02/19 24 11/03/2023 LIPID PANEL HDL cholesterol 47 mg/dL >39 Not Available [facility] [address] [place], [address], 11/03/2023 04:09:13 11/02/19 24 11/03/2023 LIPID PANEL VLDL cholesterol nunu 47 mg/dL 5-40 above high normal Not Available [facility] ([facility]) [address] [place], [address], 11/03/2023 04:09:13 11/02/19 24 11/03/2023 LIPID PANEL LDL chol calc ([facility]) 93 mg/dL 0-99 Not Available [facility] [address] [place], [address], 11/03/2023 04:09:13 11/02/19 24 11/03/2023 COMP. METAB OLIC PANEL (14) glucose 89 mg/dL 70-99 Not Available [facility] ([facility] [address] [place], [address], 11/03/2023 04:09:14 11/02/19 24 11/03/2023 COMP. METAB OLIC PANEL (14) BUN 12 mg/dL 8-27 Not Available [facility] ([facility] [address] [place], [address], 11/03/2023 04:09:14 11/02/19 24 11/03/2023 COMP. METAB OLIC PANEL (14) creatinine 0.84 mg/dL 0.57-1 .00 Not Available [facility] ([facility] [address] [place], [address], 11/03/2023 04:09:14 11/02/19 24 11/03/2023 COMP. METAB OLIC PANEL (14) eGFR 76 mL/mi n/1.7 3 >59 Not Available [facility] ([facility] [address] [place], [address], 11/03/2023 04:09:14 11/02/19 24 11/03/2023 COMP. METAB OLIC PANEL (14) BUN/creatini ne ratio 14 12-28 Not Available [facility]) [address] [place], [address], 11/03/2023 04:09:14 11/02/19 24 11/03/2023 COMP. METAB OLIC PANEL (14) sodium 140 mmol/ L 134-14 4 Not Available [facility] ([facility]) [address] [place], [address], 11/03/2023 04:09:14 11/02/19 24 11/03/2023 COMP. METAB OLIC PANEL (14) potassium 3.9 mmol/ L 3.5-5. 2 Not Available [facility] ([facility]) [address] [place], [address], 11/03/2023 04:09:14 11/02/19 24 11/03/2023 COMP. METAB OLIC PANEL (14) chloride 103 mmol/ L 96-106 Not Available [facility] ([facility]) [address] [place], [address], 11/03/2023 04:09:14 11/02/19 24 11/03/2023 COMP. METAB OLIC PANEL (14) carbon dioxide, total 25 mmol/ L 20-29 Not Available [facility] ([facility]) [address] [place], [address], 11/03/2023 04:09:14 11/02/19 24 11/03/2023 COMP. METAB OLIC PANEL (14) calcium 9.7 mg/dL 8.7-10 .3 Not Available [facility] ([facility]) [address] [place], [address], 11/03/2023 04:09:14 11/02/19 24 11/03/2023 COMP. METAB OLIC PANEL (14) protein, total 7.0 g/dL 6.0-8. 5 Not Available [facility] ([facility]) [address] [place], [id number], 11/03/2023 04:09:14 11/02/19 24 11/03/2023 COMP. METAB OLIC PANEL (14) albumin 4.8 g/dL 3.9-4. 9 Not Available [facility] ([facility]) [address] [facility] [address], [place], [address], 11/03/2023 04:09:14 11/02/19 24 11/03/2023 COMP. METAB OLIC PANEL (14) globulin, total 2.2 g/dL 1.5-4. 5 Not Available [facility] ([facility]) [address] [facility] [place], [place], [address], 11/03/2023 04:09:14 11/02/19 24 11/03/2023 COMP. METAB OLIC PANEL (14) A/G ratio 2.2 1.2-2. 2 Not Available [facility] ([facility]) [address] [facility] [place], [place], [address], 11/03/2023 04:09:14 11/02/19 24 11/03/2023 COMP. METAB OLIC PANEL (14) bilirubin, total 1.1 mg/dL 0.0-1. 2 Not Available [facility] ([facility]) [address] [facility] [place], [place], [address], 11/03/2023 04:09:14 11/02/19 24 11/03/2023 COMP. METAB OLIC PANEL (14) alkaline phosphatase 94 IU/L 44-121 Not Available [facility] [address] [facility] [place], [place], [address], 11/03/2023 04:09:14 11/02/19 24 11/03/2023 COMP. METAB OLIC PANEL (14) AST (SGOT) 30 IU/L 0-40 Not Available [facility] ([facility]) [address] [facility] [place], [place], [address], 11/03/2023 04:09:14 11/02/19 24 11/03/2023 COMP. METAB OLIC PANEL (14) ALT (SGPT) 42 IU/L 0-32 above high normal Not Available [facility] ([facility]) [address] [facility] [place], [place], [address], 11/03/2023 04:09:14 11/02/19 24 11/03/2023 TSH RFX ON ABNOR MAL TO FREE T4 TSH 6.000 uIU/m L 0.450- 4.500 above high normal Not Available [facility] ([facility]) [address] [facility] [place], [place], [address], 11/03/2023 04:09:15 11/02/1911/03/2023 T4F T4,free (direct) 1.18 NG/dL 0.82-1 .77 Not Available [facility] ([facility]) [address] [facility] [place], [place], [address], 11/03/2023 04:09:15 12/26/1912/26/2023 COLOG UARD cologuard result reportable Positi ve negati ve abnormal POSIT MONICA TEST RESUL T. A posit monica Colog uard resul t shoul d be follo wed with a colon oscop y or visua l exami natio n of the colon . The mary l value (refe rence range ) for this assay is negat monica. TEST DESCR IPTIO N: Gateway site algor ithmi c harshil sis of stool DNA-b zain gonzalez with hemog lobin immun oassa y. Quant itati ve value s of indiv idual bioma rkers are not repor table and are not assoc iated with indiv idual bioma rker resul t refer ence range s. Colog uard is inten ded for color ectal cance r scree maan of adult s of eithe r sex, 45 years or older , who are at [facility] for color ectal cance r (CRC) . Colog uard has been appro yemi for use by the U.[place]. FDA. The perfo rmanc e of Colog uard was estab lishe d in a cross secti onal study of [facility] adult s aged 50-84 . Colog uard perfo rmanc e in patie nts ages 45 to 49 years was estim ated by jennifer-emanuel gallagher harshil sis of near- age group s. Colon oscop ies perfo rmed for a posit monica resul t may find as the most clini shahnaz signi fican t lesio n: color ectal cance r [4.0% ], advan pooja adeno ma (incl uding sessi le hailey yanni polyp s great er than or equal to 1cm diame ter) [20%] or non- advan pooja adeno ma [31%] ; or no color ectal neopl tyron [45%] . These estim ates are deriv ed from a prosp ectiv e cross -sect ional scree aman study of 0 indiv idual s at [facility] risk for color ectal cance r who were scree craig with both Colog uard and colon oscop y. (Pacheco Villalobos et al, N Engl J Med 2014; 370(1 4):12 86-12 97.) Colog uard may produ ce a false negat monica or false posit monica resul t (no color ectal cance r or preca ncero us polyp prese nt at colon oscop y follo w up). A negat monica Colog uard test resul t does not guara ntee the absen ce of CRC or advan pooja adeno ma (pre- cance r). The curre nt Colog uard scree aman inter onur is every 3 years . (Amer ican Cance r Socie ty and U.S. Multi -Soci ety Task Force ). Colog uard perfo rmanc e data in a 0 patie nt pivot al study using colon oscop y as the refer ence metho d can be acces sed at the follo wing locat ion: www.e xactl abs.c om/re tomas . Addit ional descr iptio n of the Colog uard test proce ss, warni ngs and preca ution s can be found at www.c myles deanne.c om. Not Available [facility] (Cologuard Orders Only) [address], [place], [address], 12/31/2023 02:07:36 03/30/20 24 03/30/2024 Bacte raymon ident ified in Urine by Cultu re result report SEE RESULT S BELOW resul t repor t Not Available Not Available 11/14/2024 10:34:30 05/09/20 24 05/10/2024 LIPID PANEL cholesterol, total 159 mg/dL 100-19 9 Not Available [facility]) [address] [place], [address], 05/10/2024 04:11:15 05/09/20 24 05/10/2024 LIPID PANEL triglyceride s 292 mg/dL 0-149 above high normal Not Available [facility]) [address] [place], [address], 05/10/2024 04:11:15 05/09/20 24 05/10/2024 LIPID PANEL HDL cholesterol 42 mg/dL >39 Not Available [facility] [address] [place], [address], 05/10/2024 04:11:15 05/09/20 24 05/10/2024 LIPID PANEL VLDL cholesterol nunu 47 mg/dL 5-40 above high normal Not Available [facility]) [address] [place], [address], 05/10/2024 04:11:15 05/09/20 24 05/10/2024 LIPID PANEL LDL chol calc ([facility]) 70 mg/dL 0-99 Not Available [facility] [address] [place], [address], 05/10/2024 04:11:15 05/09/20 24 05/10/2024 COMP. METAB OLIC PANEL (14) glucose 87 mg/dL 70-99 Not Available [facility] [address] [place], [address], 05/10/2024 04:11:16 05/09/20 24 05/10/2024 COMP. METAB OLIC PANEL (14) BUN 12 mg/dL 8-27 Not Available [facility]) [address] [place], [address], 05/10/2024 04:11:16 05/09/20 24 05/10/2024 COMP. METAB OLIC PANEL (14) creatinine 0.88 mg/dL 0.57-1 .00 Not Available [facility] ([facility]) [address] [facility] [place], [address], 05/10/2024 04:11:16 05/09/20 24 05/10/2024 COMP. METAB OLIC PANEL (14) eGFR 72 mL/mi n/1.7 3 >59 Not Available [facility] ([facility]) [address] [facility] [place], [address], 05/10/2024 04:11:16 05/09/20 24 05/10/2024 COMP. METAB OLIC PANEL (14) BUN/creatini ne ratio 14 12-28 Not Available [facility]) [address] [facility] [place], [address], 05/10/2024 04:11:16 05/09/20 24 05/10/2024 COMP. METAB OLIC PANEL (14) sodium 142 mmol/ L 134-14 4 Not Available [facility] ([facility]) [address] [facility] [place], [address], 05/10/2024 04:11:16 05/09/20 24 05/10/2024 COMP. METAB OLIC PANEL (14) potassium 4.1 mmol/ L 3.5-5. 2 Not Available [facility] ([facility]) [address] [facility] [place], [address], 05/10/2024 04:11:16 05/09/20 24 05/10/2024 COMP. METAB OLIC PANEL (14) chloride 102 mmol/ L 96-106 Not Available [facility] ([facility]) [address] [facility] [place], [address], 05/10/2024 04:11:16 05/09/20 24 05/10/2024 COMP. METAB OLIC PANEL (14) carbon dioxide, total 25 mmol/ L 20-29 Not Available [facility] ([facility]) [address] [facility] [place], [address], 05/10/2024 04:11:16 05/09/20 24 05/10/2024 COMP. METAB OLIC PANEL (14) calcium 9.6 mg/dL 8.7-10 .3 Not Available [facility] ([facility]) [address] [facility] [place], [address], 05/10/2024 04:11:16 05/09/20 24 05/10/2024 COMP. METAB OLIC PANEL (14) protein, total 6.7 g/dL 6.0-8. 5 Not Available [facility] ([facility]) [address] [facility] [place], [address], 05/10/2024 04:11:16 05/09/20 24 05/10/2024 COMP. METAB OLIC PANEL (14) albumin 4.5 g/dL 3.9-4. 9 Not Available [facility] ([facility] [address] [place], [address], 05/10/2024 04:11:16 05/09/20 24 05/10/2024 COMP. METAB OLIC PANEL (14) globulin, total 2.2 g/dL 1.5-4. 5 Not Available [facility] ([facility]) [address] [facility] [place], [address], 05/10/2024 04:11:16 05/09/20 24 05/10/2024 COMP. METAB OLIC PANEL (14) bilirubin, total 1.3 mg/dL 0.0-1. 2 above high normal Not Available [facility] ([facility]) [address] [facility] [place], [address], 05/10/2024 04:11:16 05/09/20 24 05/10/2024 COMP. METAB OLIC PANEL (14) alkaline phosphatase 100 IU/L 44-121 Not Available [facility] [address] [place], [address], 05/10/2024 04:11:16 05/09/20 24 05/10/2024 COMP. METAB OLIC PANEL (14) AST (SGOT) 21 IU/L 0-40 Not Available [facility]) [address] [facility] [place], [address], 05/10/2024 04:11:16 05/09/20 24 05/10/2024 COMP. METAB OLIC PANEL (14) ALT (SGPT) 22 IU/L 0-32 Not Available [facility] ([facility] [address] [place], [address], 05/10/2024 04:11:16 05/09/20 24 05/10/2024 TSH RFX ON ABNOR MAL TO FREE T4 TSH 5.450 uIU/m L 0.450- 4.500 above high normal Not Available [facility] ([facility]) [address] [place], [address], 05/10/2024 04:11:17 05/09/20 24 05/10/2024 IRON AND TIBC iron bind.cap.(TI BC) 333 ug/dL 250-45 0 Not Available [facility] ([facility]) [address] [place], [address], 05/10/2024 04:11:17 05/09/20 24 05/10/2024 IRON AND TIBC UIBC 242 ug/dL 118-36 9 Not Available [facility] ([facility] [address] [place], [address], 05/10/2024 04:11:17 05/09/20 24 05/10/2024 IRON AND TIBC iron 91 ug/dL 27-139 Not Available [facility] ([facility]) [address] [facility] [place], [address], 05/10/2024 04:11:17 05/09/20 24 05/10/2024 IRON AND TIBC iron saturation 27 % 15-55 Not Available [facility] ([facility] [address] [place], [address], 05/10/2024 04:11:17 05/09/20 24 05/10/2024 T4F T4,free (direct) 1.11 NG/dL 0.82-1 .77 Not Available [facility] ([facility] [address] [place], [address], 05/10/2024 04:11:18 05/09/20 24 05/10/2024 FLETCHER TIN ferritin 74 NG/mL 15-150 Not Available [facility] ([facility] [address] [place], [address], 05/10/2024 04:11:18 05/09/20 24 05/09/2024 CBC WITH DIFFE RENTI AL/PL ATELE T WBC 6.9 x10e3 /uL 3.4-10 .8 Not Available [facility] ([facility] [address] [place], [address], 05/10/2024 04:11:19 05/09/20 24 05/09/2024 CBC WITH DIFFE RENTI AL/PL ATELE T RBC 5.35 x10e6 /uL 3.77-5 .28 above high normal Not Available [facility] ([facility]) [address] [place], [address], 05/10/2024 04:11:19 05/09/20 24 05/09/2024 CBC WITH DIFFE RENTI AL/PL ATELE T hemoglobin 15.5 g/dL 11.1-1 5.9 Not Available [facility] ([facility]) [address] [facility] [place], [place], [address], 05/10/2024 04:11:19 05/09/20 24 05/09/2024 CBC WITH DIFFE RENTI AL/PL ATELE T hematocrit 48.8 % 34.0-4 6.6 above high normal Not Available [facility] ([facility]) [address] [facility] [place], [place], [address], 05/10/2024 04:11:19 05/09/20 24 05/09/2024 CBC WITH DIFFE RENTI AL/PL ATELE T MCV 91 fL 79-97 Not Available [facility] ([facility]) [address] [facility] [place], [place], [address], 05/10/2024 04:11:19 05/09/20 24 05/09/2024 CBC WITH DIFFE RENTI AL/PL ATELE T MCH 29.0 pg 26.6-3 3.0 Not Available [facility] ([facility]) [address] [facility] [place], [place], [address], 05/10/2024 04:11:19 05/09/20 24 05/09/2024 CBC WITH DIFFE RENTI AL/PL ATELE T MCHC 31.8 g/dL 31.5-3 5.7 Not Available [facility] ([facility]) [address] [facility] [place], [place], [address], 05/10/2024 04:11:19 05/09/20 24 05/09/2024 CBC WITH DIFFE RENTI AL/PL ATELE T RDW 13.7 % 11.7-1 5.4 Not Available [facility] ([facility] [address] [place], [address], 05/10/2024 04:11:19 05/09/20 24 05/09/2024 CBC WITH DIFFE RENTI AL/PL ATELE T platelets 231 x10e3 /uL 150-45 0 Not Available [facility] ([facility]) [address] [facility] [place], [place], [address], 05/10/2024 04:11:19 05/09/20 24 05/09/2024 CBC WITH DIFFE RENTI AL/PL ATELE T neutrophils 68 % notest ab. Not Available [facility] ([facility]) [address] [facility] [place], [place], [address], 05/10/2024 04:11:19 05/09/20 24 05/09/2024 CBC WITH DIFFE RENTI AL/PL ATELE T lymphs 21 % notest ab. Not Available [facility] ([facility]) [address] [facility] [place], [place], [address], 05/10/2024 04:11:19 05/09/20 24 05/09/2024 CBC WITH DIFFE RENTI AL/PL ATELE T monocytes 8 % notest ab. Not Available [facility] ([facility]) [address] [facility] [place], [place], [address], 05/10/2024 04:11:19 05/09/20 24 05/09/2024 CBC WITH DIFFE RENTI AL/PL ATELE T eos 2 % notest ab. Not Available [facility] ([facility]) [address] [facility] [place], [place], [address], 05/10/2024 04:11:19 05/09/20 24 05/09/2024 CBC WITH DIFFE RENTI AL/PL ATELE T basos 1 % notest ab. Not Available [facility] ([facility]) [address] [facility] [place], [place], [address], 05/10/2024 04:11:19 05/09/20 24 05/09/2024 CBC WITH DIFFE RENTI AL/PL ATELE T neutrophils (absolute) 4.7 x10e3 /uL 1.4-7. 0 Not Available [facility] ([facility]) [address] [facility] [place], [place], [address], 05/10/2024 04:11:19 05/09/20 24 05/09/2024 CBC WITH DIFFE RENTI AL/PL ATELE T lymphs (absolute) 1.5 x10e3 /uL 0.7-3. 1 Not Available [facility] ([facility]) [address] [facility] [place], [place], [address], 05/10/2024 04:11:19 05/09/20 24 05/09/2024 CBC WITH DIFFE RENTI AL/PL ATELE T monocytes(ab solute) 0.5 x10e3 /uL 0.1-0. 9 Not Available [facility] ([facility]) [address] [facility] [place], [place], [address], 05/10/2024 04:11:19 05/09/20 24 05/09/2024 CBC WITH DIFFE RENTI AL/PL ATELE T eos (absolute) 0.1 x10e3 /uL 0.0-0. 4 Not Available [facility] ([facility]) [address] [facility] [place], [place], [address], 05/10/2024 04:11:19 05/09/20 24 05/09/2024 CBC WITH DIFFE RENTI AL/PL ATELE T baso (absolute) 0.1 x10e3 /uL 0.0-0. 2 Not Available [facility] ([facility]) [address] [facility] [place], [place], [address], 05/10/2024 04:11:19 05/09/20 24 05/09/2024 CBC WITH DIFFE RENTI AL/PL ATELE T immature granulocytes 0 % notest ab. Not Available [facility] ([facility]) [address] [facility] [place], [place], [address], 05/10/2024 04:11:19 05/09/20 24 05/09/2024 CBC WITH DIFFE RENTI AL/PL ATELE T immature grans (abs) 0.0 x10e3 /uL 0.0-0. 1 Not Available [facility] ([facility]) [address] [facility] [place], [place], [address], 05/10/2024 04:11:19 11/14/19 25 11/14/2024 Compr ehens monica metab olic 2000 panel - Serum or Plasm a glucose [mass/volume ] in serum or plasma 107 text: 70 - 99 mg/dL high GLUCO SE 107 (H) 70 - 99 MG/DL 11/14 1:18 PM [employer] [facility] Not Available Not Available 11/14/2024 17:31:08 11/14/19 25 11/14/2024 Compr ehens monica metab olic 2000 panel - Serum or Plasm a urea nitrogen [mass/volume ] in serum or plasma 13 text: 7 - 18 mg/dL BUN 13 7 - 18 MG/DL 11/14 1:18 PM [employer] SALES [facility] Not Available Not Available 11/14/2024 17:31:08 11/14/19 25 11/14/2024 Compr ehens monica metab olic 2000 panel - Serum or Plasm a creatinine [mass/volume ] in serum or plasma 0.81 text: 0.55 - 1.02 mg/dL CREAT ININE S/P/B 0.81 0.55 - 1.02 MG/DL 11/14 1:18 PM [employer] SALES [facility] Not Available Not Available 11/14/2024 17:31:08 11/14/19 25 11/14/2024 Compr ehens monica metab olic 2000 panel - Serum or Plasm a sodium [moles/volum e] in serum or plasma 143 text: 136 - 145 mmol/L SODIU M S/P/B 143 136 - 145 MMOL/ L 11/14 1:18 PM DIRECTOR OF [employer]MENT SALES [facility] Not Available Not Available 11/14/2024 17:31:08 11/14/19 25 11/14/2024 Compr ehens monica metab olic 2000 panel - Serum or Plasm a potassium [moles/volum e] in serum or plasma 4.4 text: 3.5 - 5.1 mmol/L POTAS SIUM S/P/B 4.4 3.5 - 5.1 MMOL/ L 11/14 1:18 PM DIRECTOR OF GOVERNMENT SALES [facility] Not Available Not Available 11/14/2024 17:31:08 11/14/19 25 11/14/2024 Compr ehens monica metab olic 2000 panel - Serum or Plasm a chloride [moles/volum e] in serum or plasma 104 text: 100 - 108 mmol/L CHLOR PAMELLA S/P/B 104 100 - 108 MMOL/ L 11/14 1:18 PM DIRECTOR OF GOVERNMENT SALES [facility] Not Available Not Available 11/14/2024 17:31:08 11/14/19 25 11/14/2024 Compr ehens monica metab olic 2000 panel - Serum or Plasm a carbon dioxide, total [moles/volum e] in serum or plasma 31.1 text: 21 - 32 mmol/L CO2 31.1 21 - 32 MMOL/ L 11/14 1:18 PM DIRECT[employer] OF G[employer]ERNMENT SALES [facility] Not Available Not Available 11/14/2024 17:31:08 11/14/19 25 11/14/2024 Compr ehens monica metab olic 2000 panel - Serum or Plasm a calcium [mass/volume ] in serum or plasma 9.8 text: 8.5 - 10.1 mg/dL CALCI UM S/P/B 9.8 8.5 - 10.1 MG/DL 11/14 1:18 PM DIRECTOR OF G[employer]ERNMENT SALES [facility] Not Available Not Available 11/14/2024 17:31:08 11/14/19 25 11/14/2024 Compr ehens monica metab olic 2000 panel - Serum or Plasm a bilirubin.to juliet [mass/volume ] in serum or plasma 1.6 text: 0.2 - 1.2 mg/dL high BILIR UBIN TOTAL S/P/B 1.6 (H) 0.2 - 1.2 MG/DL 11/14 1:18 PM DIRECTOR OF GOVERNMENT SALES [facility] Not Available Not Available 11/14/2024 17:31:08 11/14/19 25 11/14/2024 Compr ehens monica metab olic 1999 panel - Serum or Plasm a protein [mass/volume ] in serum or plasma 7.1 text: 6.4 - 8.2 g/dL TOTAL PROTE IN S/P/B 7.1 6.4 - 8.2 G/DL 11/14 1:18 PM DIRECTOR OF GOVERNMENT SALES [facility] Not Available Not Available 11/14/2024 17:31:08 11/14/19 25 11/14/2024 Compr ehens monica metab olic 2000 panel - Serum or Plasm a albumin [mass/volume ] in serum or plasma 4.3 text: 3.4 - 5.0 g/dL ALBUM IN S/P/B 4.3 3.4 - 5.0 G/DL 11/14 1:18 PM DIRECTOR OF GOVERNMENT SALES [facility] Not Available Not Available 11/14/2024 17:31:08 11/14/19 25 11/14/2024 Compr ehens monica metab olic 2000 panel - Serum or Plasm a aspartate aminotransfe rase [enzymatic activity/vol ume] in serum or plasma 38 U/L low: 15U/Lh igh: 37U/L high AST 38 (H) 15 - 37 U/L 11/14 1:18 PM DIRECT[employer] OF [employer] SALES [facility] Not Available Not Available 11/14/2024 17:31:08 11/14/19 25 11/14/2024 Compr ehens monica metab olic 2000 panel - Serum or Plasm a alanine aminotransfe rase [enzymatic activity/vol ume] in serum or plasma 63 U/L low: 14U/Lh igh: 55U/L high ALT 63 (H) 14 - 55 U/L 11/14 1:18 PM [facility] Not Available Not Available 11/14/2024 17:31:08 11/14/19 25 11/14/2024 Compr ehens monica metab olic 2000 panel - Serum or Plasm a alkaline phosphatase [enzymatic activity/vol ume] in serum or plasma 88 U/L low: 50U/Lh igh: 136U/L ALKAL INE PHOSP HATAS E S/P/B 88 50 - 136 U/L 11/14 1:18 PM [facility] Not Available Not Available 11/14/2024 17:31:08 11/14/19 25 11/14/2024 Compr ehens monica metab olic 2000 panel - Serum or Plasm a anion gap in serum or plasma 7.9 text: 5 - 15 mmol/L ANION GAP 7.9 5 - 15 MMOL/ L 11/14 1:[address] [facility] () [facility] Not Available Not Available 11/14/2024 17:31:08 11/14/19 25 11/14/2024 Compr ehens monica metab olic 2000 panel - Serum or Plasm a urea nitrogen/cre atinine [mass ratio] in serum or plasma 16 low: 6high: 26 BUN CREAT ININE RATIO 16.0 6 - 26 11/14 1:[address] [facility] () [facility] Not Available Not Available 11/14/2024 17:31:08 11/14/19 25 11/14/2024 Compr ehens monica metab olic 2000 panel - Serum or Plasm a albumin/glob ulin [mass ratio] in serum or plasma 1.5 text: 1.0 - 2.0 ratio A/G RATIO 1.5 1.0 - 2.0 RATIO 11/14 1:18 PM [facility] Not Available Not Available 11/14/2024 17:31:08 11/14/19 25 11/14/2024 Compr ehens monica metab olic 2000 panel - Serum or Plasm a glomerular filtration rate/1.73 sq M.predicted [volume rate/area] in serum, plasma or blood by creatinine-b ased formula (CKD-epi 2020) 79 text: >90 mL/min /1.73 M2 low GFR ESTIM ATE 79 (L) >90 ML/MT N/1.7 3 M2 11/14 1:18 PM DIRECTOR OF G[employer]ERNMENT SALES [facility] Not Available Not Available 11/14/2024 17:31:08 11/14/19 25 11/14/2024 Compr ehens monica metab olic 2000 panel - Serum or Plasm a interpretati on and review of laboratory results Abnorm al Not Available Not Available 17:31:08 11/14/19 25 11/14/2024 Hemog lobin A1c/H emogl obin. total in Blood hemoglobin A1C/hemoglob in.total in blood 5.5 % high: 5.7% HGB A1C 5.5 <5.7 % 11/14 12:56 PM DIRECTOR OF G[employer]ERNMENT SALES [facility] Not Available Not Available 11/14/2024 17:31:08 11/14/19 25 11/14/2024 Hemog lobin A1c/H emogl obin. total in Blood glucose mean value [mass/volume ] in blood estimated from glycated hemoglobin 111 mg/dL ESTIM ATED AVG GLUCO SE 111 mg/dL 11/14 12:56 PM DIRECTOR OF GOVERNMENT SALES [facility] Not Available Not Available 11/14/2024 17:31:08 11/14/19 25 11/14/2024 Lipid 1995 panel - Serum or Plasm a cholesterol [mass/volume ] in serum or plasma 185 text: <200.0 mg/dL MEGHNA STERO L 185 <200. 0 MG/DL 11/14 1:18 PM DIRECTOR OF G[employer]ERNMENT SALES [facility] Not Available Not Available 11/14/2024 17:31:08 11/14/19 25 11/14/2024 Lipid 1996 panel - Serum or Plasm a triglyceride [mass/volume ] in serum or plasma 207 text: <150 mg/dL high TRIGL YCERI MAXIMILIAN 207 (H) <150 MG/DL 11/14 1:18 PM DIRECTOR OF GOVERNMENT SALES [facility] [employer] [facility] Not Available Not Available 11/14/2024 17:31:08 11/14/19 25 11/14/2024 Lipid 1996 panel - Serum or Plasm a cholesterol in HDL [mass/volume ] in serum or plasma 53 text: >40.0 mg/dL HDL 53 >40.0 MG/DL 11/14 1:18 PM [facility]- Cost Effective [facility]P [facility] [employer] [facility] Not Available Not Available 11/14/2024 17:31:08 11/14/19 25 11/14/2024 Lipid 1996 panel - Serum or Plasm a cholesterol in LDL [mass/volume ] in serum or plasma by calculation 91 text: <100 mg/dL LDL (CALC ULATE D) 91 <100 MG/DL 11/14 1:18 PM [facility] Not Available Not Available 11/14/2024 17:31:08 11/14/19 25 11/14/2024 Lipid 1996 panel - Serum or Plasm a cholesterol non HDL [mass/volume ] in serum or plasma 132 text: <130 mg/dL high NON HDL MEGHNA STERO L 132 (H) <130 MG/DL 11/14 1:18 PM [facility] Not Available Not Available 11/14/2024 17:31:08 11/14/19 25 11/14/2024 Lipid 1996 panel - Serum or Plasm a cholesterol. total/choles terol in HDL [mass ratio] in serum or plasma 3.5 low: 0high: 4.5 CHOL/ HDL RATIO 3.5 0.0 - 4.5 11/14 1:18 PM DIRECTOR OF GOVERNMENT SALES [facility] [employer] [facility] Not Available Not Available 11/14/2024 17:31:08 11/14/19 25 11/14/2024 Lipid 1996 panel - Serum or Plasm a cholesterol in VLDL [mass/volume ] in serum or plasma by calculation 41 text: 5 - 55 mg/dL VLDL CALCU LATIO N 41 5 - 55 MG/DL 02/24 /2025 1:18 PM DIRECTOR OF GOVERNMENT SALES [facility] Not Available Not Available 11/14/2024 17:31:08 11/14/19 25 11/14/2024 Lipid 1996 panel - Serum or Plasm a service comment LIPID INTER PRETA TION 11/14 1:18 PM DIRECTOR OF GOVERNMENT SALES [facility] Not Available Not Available 11/14/2024 17:31:08 11/14/19 25 11/14/2024 Lipid 1996 panel - Serum or Plasm a interpretati on and review of laboratory results Abnorm al Not Available Not Available 17:31:08 11/14/19 25 11/14/2024 Thyro tropi n [Unit s/vol ume] in Serum or Plasm a thyrotropin [units/volum e] in serum or plasma 3.239 text: 0.358 - 3.74 uIU/mL TSH 3.239 0.358 - 3.74 uIU/M L 11/14 1:18 PM DIRECTOR OF GOVERNMENT SALES [facility] Not Available Not Available 11/14/2024 17:31:08 08/09/20 24 08/09/2024 bone densi ty No observ ation record ed. [address], [address], 08/11/2024 16:00:10 Result Notes None recorded. Problems Name Problem SNOMED Code Status Onset Date Resolution Date Notes Provider Name and Address Organization Details Recorded Time Hyperlipidemi a 16502387 Active 2020 Not Available [facility] 3 12:47:29 Seborrheic keratosis 967908981 Active 2020 Not Available [facility] 3 12:47:29 Mammogram declined 155052609 Active 2023 Tom Sifuentes MD Attn: Accounting ,[address] [place], [address] , [facility] 4 08:57:52 Thyroid stimulating hormone level above reference range 227024490 Active 2023 Tom Sifuentes MD Attn: Accounting ,[address] [facility], [place], [address] , [facility] 12:00:52 Occult blood detected in feces 86236884 Active 2023 Tom Sifuentes MD Attn: Accounting ,[address] [facility], [place], [address] , [facility] 4 13:50:15 Osteopenia 643573687 Active 2023 Tom Sifuentes MD Attn: Accounting ,[address] [facility], [place], [address] , [facility] 4 13:38:13 Problem Notes None recorded. Procedures Surgical History Date Name Laterality Status Provider Name and Address Organization Details Recorded Time 03/25/20 24 colonoscopy completed SAMEER Leon [facility] 03/25/2024 11:37:27 09/29/19 24 removal of mole of skin by excision completed Denise Almendarez [facility] 11/02/2023 08:40:47 Breast augmentation w/implt completed Denise Almendarez [facility] 10/23/2020 10:19:33 Total hysterectomy completed Denise Almendarez [facility] 10/23/2020 10:19:40 fit denture completed Denise Almendarez [facility] 10/23/2020 10:20:00 Tubal Ligation completed Denise Almendarez [facility] 10/23/2020 10:20:08 Imaging Results None recorded. Procedure Notes None recorded. Medical Equipment None Reported. Allergies No known drug allergies Medications Name Sig Start Date Stop Date Status Note LastModified by Organization Details LastModified Time atorvastatin 10 mg tablet TAKE 1 TABLET BY MOUTH EVERY DAY 2023 active Not Available Not Available Not Avai lable estradiol 0.01% (0.1 mg/gram) vaginal cream INSERT 1 G BY VAGINAL ROUTE. active Not Available Not Available No t Available Vitals Date Recorded Body height Body mass index (BMI) Body weight Heart rate Respiratory rate Body temperature Oxygen saturation Oxygen saturation in Arterial blood by Pulse oximetry Systolic And Diastolic Provider Name and Address Organization Details Last Updated DateTime 3 166.37 cm 24.4 kg/m2 30426.2 6 g 80 /min 16 /min 97.8 [degF] 97 % 97 % 112/78 mm[Hg] Martha Bonnerte [facility] 3 08:48:30 Date Recorded Body height Body mass index (BMI) Body weight Heart rate Respiratory rate Body temperature Oxygen saturation Oxygen saturation in Arterial blood by Pulse oximetry Systolic And Diastolic Provider Name and Address Organization Details Last Updated DateTime 4 166.37 cm 23.5 kg/m2 30339.2 2 g 78 /min 12 /min 97.3 [degF] 97 % 97 % 115/74 mm[Hg] Denise Almendarez MA [facility] 4 08:42:44 Date Recorded Body height Body mass index (BMI) Body weight Heart rate Respiratory rate Body temperature Oxygen saturation Oxygen saturation in Arterial blood by Pulse oximetry Systolic And Diastolic Provider Name and Address Organization Details Last Updated DateTime 3 166.37 cm 23.5 kg/m2 75724.0 7 g 73 /min 12 /min 97.3 [degF] 97 % 97 % 127/79 mm[Hg] Denise Almendarez MA [facility] 3 08:40:47 Date Recorded Body height Body mass index (BMI) Body weight Heart rate Respiratory rate Body temperature Oxygen saturation Oxygen saturation in Arterial blood by Pulse oximetry Systolic And Diastolic Provider Name and Address Organization Details Last Updated DateTime 4 166.37 cm 23.4 kg/m2 39634.6 3 g 74 /min 12 /min 97.2 [degF] 98 % 98 % 110/74 mm[Hg] Denise Almendarez MA [facility] 4 08:38:59 Date Recorded Body height Body mass index (BMI) Body weight Heart rate Respiratory rate Body temperature Oxygen saturation Oxygen saturation in Arterial blood by Pulse oximetry Systolic And Diastolic Provider Name and Address Organization Details Last Updated DateTime 2 166.37 cm 24.1 kg/m2 04830.0 8 g 85 /min 12 /min 97.3 [degF] 99 % 99 % 126/80 mm[Hg] Denise Almendarez MA [facility] 08:56:55 Social History Question Answer Notes LastModified by Organizat ion Details LastModified Time Tobacco Smoking Status Former Smoker Quit at age 40 Quit - 1994 JANAK Wagn, [facility] 04/29/2021 08:43:51 Do You Have An Advance Directive? No Information not available 04/29/2021 Are You Blind Or Do You Have Difficulty Seeing? Yes Glasses Information not available 05/09/2024 What Is Your Level Of Caffeine Consumption? Occasional Tea [email or web address] Information not available 10/27/2022 How Much Tobacco Do You Chew? None Information not available 10/23/2020 In The 14 Days Before Symptom Onset, Have You Had Close Contact With A Laboratory-confir med COVID-19 While That Case Was Ill? No Information not available 10/23/2020 In The 14 Days Before Symptom Onset, Have You Had Close Contact With A Person Who Is Under Investigation For COVID-19 While That Person Was Ill? No Information not available 10/23/2020 Have You Been To An Area Known To Be High Risk For COVID-19? No Information not available 05/19/2022 Are You Deaf Or Do You Have Serious Difficulty Hearing? No Information not available 04/29/2021 What Type Of Diet Are You Following? REGULAR Information not available 10/23/2020 Which Illicit Or Recreational Drugs Have You Used? Denied Information not available 10/23/2020 What Is The Highest Grade Or Level Of School You Have Completed Or The Highest Degree You Have Received? [id number] Information not available 04/29/2021 Are There Any Guns Present In Your Home? Yes Information not available 10/23/2020 Marital Status Informatio n not available 10/23/2020 What Was The Date Of Your Most Recent Tobacco Screening? 05/09/2024 Information not available 05/09/2024 Performs Monthly Self-breast Exam? Yes Information no t available 10/23/2020 What Is Your Relationship Status? Information not available 04/29/2021 Do You Use Your Seat Belt Or Car Seat Routinely? Yes Information not available 04/29/2021 Seat Belts Used Routinely Yes Information not available 10/23/2020 Smoke Alarm In Home Yes Information not available 10/23/2020 Do You Have Smoke And Carbon Monoxide Detectors In Your Home? Yes [email or web address] Information not available 10/27/2022 At What Age Did You Start Smoking Tobacco? 16 Information not available 10/23/2020 How Much Tobacco Do You Smoke? 1.5 PPD Information not available 10/23/2020 General Stress Level Low Information not available 10/23/2020 Do You Use Sunscreen Routinely? No Information not available 10/23/2020 Has Tobacco Cessation Counseling Been Provided? No Information not available 05/19/2022 Sex: Female Functional Status Question Answer Note LastModified by Organizat ion Details LastModified Time Do you use any illicit or recreational drugs? No Information not available 04/29/2021 Do you or have you ever used any other forms of tobacco or nicotine? No Information not available 04/29/2021 What is your level of alcohol consumption? Occasional Information not available 10/23/2020 Do you or have you ever used smokeless tobacco? Never used smokeless tobacco Information not available 10/23/2020 Are you currently employed? No Information not available 05/19/2022 Are you able to care for yourself? Yes Information not available 04/29/2021 What is your occupation? [employer] Retired- 2021 Information not available 05/09/2024 Do you or have you ever used e-cigarettes or vape? Never used electronic cigarettes Information not available 10/23/2020 What is your exercise level? None some Information not available 05/09/2024 Mental Status Question Answer Note LastModified by Organization D etails LastModified Time Do you feel stressed (tense, restless, nervous, or anxious, or unable to sleep at night)? [id number] Information not available 05/09/2024 Family History Relationship Description Onset Age of this Age Resolved Age Notes LastModified by Organization Details LastModified Time Father Family history of malignant neoplasm Not available 2020 10:13:06 Father Diabetes mellitus Not available 2020 10:13:50 Mother Family history of malignant neoplasm Not available 2020 10:13:06 Medical History Condition Response Coronary Artery Disease N Other N Atrial Fibrillation N High Blood Pressure N Thyroid Problems N Kidney or Bladder Problems N Depression N COPD N Blood Clots N GI Problems N Skin Problems N Anemia N Heart Attack (MT) N Diabetes N Anxiety Disorder N Muscle, Joint, or Bone Problems N Seizures/Epilepsy N Acid Reflux (GERD) Y Cancer Y Stroke N Allergies N Asthma N High Cholesterol N Hepatitis N Liver Disease N Headaches N Osteoporosis Y Heart Failure N Gynecological HistoryNo gynecological history recorded. Obstetrics History GPAL:G 0 P 0 0 0 0 Immunizations Vaccine Type Date Status Note Provider Nam e and Address Organization Details Recorded Time COVID-19, mRNA, LNP-S, PF, 100 mcg/0.5mL dose or 50 mcg/0.25mL dose 1 completed Denise Almendarez [place] null, [place] [facility] 04/29/2021 08:41:18 COVID-19, mRNA, LNP-S, PF, 100 mcg/0.5mL dose or 50 mcg/0.25mL dose 0 completed Denise Almendarez [place], [place] [facility] 04/29/2021 08:41:42 COVID-19, mRNA, LNP-S, PF, 100 mcg/0.5mL dose or 50 mcg/0.25mL dose 1 completed JANAK Wang, [place] [facility] 05/19/2022 08:52:25 Tdap 1 completed JANAK [place], [place] [facility] 04/29/2021 09:19:44 Pneumococcal conjugate PCV20, polysaccharide [id number] conjugate, adjuvant, PF 2 completed Tom Sifuentes MD Attn: Accounting,[address] [place], [address], [place] [facility] 05/20/2022 09:47:30 Past Encounters Encounter ID Performer Location Encounter Start Date Encounter Closed Date Diagnosis/Indication Diagnosis SNOMED-CT Code Diagnosis ICD10 Code Diagnosis Note [id number] [facility] [address] [place] [address] 10/23/2020 08:37:43 10/24/2020 10:00:31 Adult health examination 245963905 Z00.00 healthy diet and exercise discussed with pt Screening mammography 24 132376 Z12.31 pt to see Depilatory Painter for [employer] Screening for malignant neoplasm of colon 171472369 Z12.11 pt had colonoscop y in the past and does not want to have colonoscop y . Postmenopausal state 764 04709 Z78.0 h/o osteopenia . [id number] [facility] [address] [place] [address] 04/29/2021 08:21:48 05/02/2021 09:58:45 Hyperlipidemia 39609850 E78.5 healthy diet and exercise discussed with pt Administra tion of diphtheria, pertussis, and tetanus vaccine 049894535 Z23 Seborrheic keratosis 394 890168 L82.1 let us know if any change in color /size [id number] MD [facility] ([facility]) [address] [place] [address] 05/19/2022 08:25:36 05/20/2022 11:17:16 Hyperlipidemia 40793232 E78.5 healthy diet and exercise discussed with pt Administra tion of pneumococcal vaccine 47997458 Z23 History of osteopenia 47 3333579 Z87.39 -pt takes vit D Gastroesop hageal reflux disease without esophagitis 564230930 K21.9 -pt takes otc ppi [id number] MD [facility] (Adult Med) [address] [place] [address] 10/27/2022 08:37:22 11/03/2022 11:05:34 Hyperlipidemia 90519205 E78.5 -healthy diet and exercise discussed with ptcontinue statin Serum thyr oid stimulating hormone level outside reference range 869101041 R79.89 -monitor labs [id number] [facility] [address] [place] [address] 04/27/2023 08:15:09 04/28/2023 11:33:30 Hyperlipidemia 42687569 E78.5 -healthy diet and exercise discussed with ptcontinue statin Mammogram declined 25707 5004 Z53.20 - pt has breast implant and does not want to do -sees Depilatory Painter Seborrheic keratosis 394 028458 L82.1 let us know if any change in color /size- pt to see derm due to getting irritated [id number] MD [facility] [address] [place] [address] 11/02/2023 08:21:45 11/04/2023 12:33:42 Hyperlipidemia 85848869 E78.5 -healthy diet and exercise discussed with ptcontinue statin Screening for malignant neoplasm of colon 128299827 Z12.11 pt had colonoscop y in the past and does not want to have colonoscop y . Thyroid st imulating hormone level above reference range 548031943 R94.6 Mammogram declined 52554 5004 Z53.20 - pt has breast implant and does not want to do -sees Depilatory Painter Postmenopausal state 764 30014 Z78.0 h/o osteopenia . [id number] MD [facility] [address] [place] [address] 05/09/2024 08:19:38 05/16/2024 13:23:09 Hyperlipidemia 24050834 E78.5 -healthy diet and exercise discussed with ptcontinue statin Thyroid st imulating hormone level above reference range 116986822 R94.6 -monitor labs Occult blo od detected in feces 46889343 R19.5 -pt had colonoscop y and polyps removed Health Concerns Section Related Observation LastModified by Organization Detai ls LastModified Time None Recorded Concern Status LastModified by Organization Details LastModified Time None Recorded Advance Directives Directive N: Payers Insurance Date Sequence Insurance Name Policy Number Policy Nunes Covered Member ID Nunes Member ID Guarantor Name 05/09/2024 1 [id number] [id number] Marylin Solis [id number] Marylin Solis 05/09/2024 1 [facility] (O) [id number] Marylin Lipscomb Solis [id number] Marylin Solis 05/16/2024 1 [facility] (MEDICARE REPLACEMENT/A DVANTAGE - HMO) [id number] Marylin Lipscomb Irma [id number] Marylin Solis Notes Date Note Type Note Provider Name and Address Organization Details Recorded Time 2 text/html pt with hyperlipidemia and h/o osteopenia , taking vit D is here for f/uDenied any complaints . Tom Sifuentes MD Attn: Accounting,[address] [place], [address], [facility] 05/20/2022 09:49:47 3 text/html HyperlipidemiaReported bypatient.Type of hyperlipidemia:combined Duration:chronic Current Therapy:currently taking: (statin) Compliance:compliant; exercises;noncompliant with diet Complications:no coronary artery disease; no cardiovascular disease Risk Factors:positive family history of premature arteriosclerotic cardiovascular disease pt with hyperlipidemia and h/o osteopenia , taking vit D is here for f/uDenied any complaints . Tom Sifuentes MD Attn: Accounting,[address] [place] [address], [address] [place] [address], [facility] 10/27/2022 15:36:32 3 text/html HyperlipidemiaReported bypatient.Type of hyperlipidemia:combined Duration:chronic Current Therapy:currently taking: (statin) Compliance:compliant; exercises;noncompliant with diet Complications:no coronary artery disease; no cardiovascular disease Risk Factors:positive family history of premature arteriosclerotic cardiovascular disease pt with hyperlipidemia and h/o osteopenia , taking vit D is here for f/uDenied any complaints . Tom Sifuentes MD Attn: [facility],[address] [place] [address], [address], [facility] 04/27/2023 08:59:12 4 text/html HyperlipidemiaReported bypatient.Type of hyperlipidemia:combined Duration:chronic Current Therapy:currently taking: (statin) Compliance:compliant; exercises;noncompliant with diet Complications:no coronary artery disease; no cardiovascular disease Risk Factors:positive family history of premature arteriosclerotic cardiovascular disease pt with hyperlipidemia and h/o osteopenia , taking vit D is here for f/uDenied any complaints . Tom Sifuentes MD Attn: Accounting,[address] [facility], [place], [address], [facility] 11/02/2023 09:07:28 4 text/html HyperlipidemiaReported bypatient.Type of hyperlipidemia:combined Duration:chronic Current Therapy:currently taking: (statin) Compliance:compliant; exercises;noncompliant with diet Complications:no coronary artery disease; no cardiovascular disease Risk Factors:positive family history of premature arteriosclerotic cardiovascular disease pt with hyperlipidemia and h/o osteopenia , taking vit D is here for f/uDenied any complaints . Tom Sifuentes MD Attn: Accounting,[address] [facility], [place], [address], [facility] 05/09/2024 08:55:47 OBGyn Episode No OBEpisode recorded.
--- OUTSIDE RECORDS SUMMARY | 2025-04-10 10:49 | XMS_ITS | Clinical Summary ---
Author Organization [facility] Address [address] [place] [address] Care Team Providers Care Wildlife Biology Technician Name Role Phone Tom Black MD Primary Care Provider Allergies No known active allergies Medications multivitamin with minerals liquid Take 15 mLs by mouth daily. Active estradiol (ESTRACE) 0.1 MG/GM vaginal cream INSERT 1 G [address] VAGINAL ROUTE. Active atorvastatin (LIPITOR) 10 MG tabletIndications: Mixed hyperlipidemia Take 1 tablet (10 mg total) by mouth daily. 90 tablet 1 5 Active atorvastatin (LIPITOR) 10 MG tabletIndications: Mixed hyperlipidemia Take 1 tablet (10 mg total) by mouth daily. 30 tablet 5 03/14/20 25 Discontin ued(Reord er) Active Problems Problem Noted Date Diagnosed Date LFT elevation 11/15/2024 Assessment & Plan (03/14/2025 8:31 AM CDT): - pt is on statin / hepatitis panel and liver US-unremarkable Orders: CBC W/DIFF AUTOMATED; Future COMPREHENSIVE METABOLIC PANEL; Future LIPID PANEL; Future HEPATITIS B SURFACE AG, EIA; Future HEPATITIS C ANTIBODY; Future Mixed hyperlipidemia 11/14/2024 Assessment & Plan (03/14/2025 8:31 AM CDT): -Patient is on atorvastatin. -Patient to continue diet and exercise Orders: CBC W/DIFF AUTOMATED; Future COMPREHENSIVE METABOLIC PANEL; Future LIPID PANEL; Future HEPATITIS B SURFACE AG, EIA; Future HEPATITIS C ANTIBODY; Future atorvastatin (LIPITOR) 10 MG tablet; Take 1 tablet (10 mg total) by mouth daily. Assessment & Plan (11/14/2024 7:32 AM SPECIAL INVESTIGATION UNIT INVESTIGATOR): -Patient is on atorvastatin. -Patient to continue diet and exercise Seborrheic keratosis 11/14/2024 Assessment & Plan (11/14/2024 8:51 AM SPECIAL INVESTIGATION UNIT INVESTIGATOR): -Asymptomatic/benign appearance -no change in color or size per patient -Observe for now Encounters Date Type Department Care Team Description 04/07/2025 Telephone [facility] Internal [address] [phone] Tom Black MD Lab Results 03/16/2025 Results Follow-Up [address] [phone] Tom Black MD HEPATITIS C ANTIBODY, HEPATITIS B SURFACE AG, EIA, LIPID PANEL, Additional followed-up results: 2 03/14/2025 12:24 PM CDT - 03/14/2025 11:59 PM CDT Hospital Encounter [facility] [address] [place] [id number] Tom Black MD Discharge Disposition: Home or Self Care (Routine Discharge) 03/14/2025 8:40 AM CDT Laboratory Only [facility] Internal [address] [phone] Tom Black MD 03/14/2025 8:20 AM CDT Office Visit [facility] Internal [address] [phone] Tom Black MD Hyperlipidemia (4 MO F/U) 03/14/2025 Travel from Last 3 Months Immunizations Immunization Administration Dates Next Due MODERNA COVID-19 (12+) MRNA, LNP-S, PF, 100 MCG/ 0.5 ML DOSE 11/28/2019 Pneumococcal (Prevnar 20) 05/19/2022 Shingrix 03/31/2023,01/05/2023 Tdap (Generic) 04/29/2021 Family History Medical History Relation Comments Cancer Father Heart Attack Father Anemia Mother Relation Status Comments Brother Unknown Daughter Unknown Father Mother Social History Tobacco Use Types Packs/Day Years Used Date Smoking Tobacco: Former Cigarettes Smokeless Tobacco: Never Tobacco Cessation:Counseling Given: No Alcohol Use Standard Drinks/Week Comments Yes 0 (1 standard drink = 0.6 oz pur e alcohol) OCC PHQ-2 Answer Date Recorded Patient Health Questionnaire-2 Score 0 11/14/2024 Comments No Sex and Gender Information Value Date Recorded Sex Assigned at Female 10/26/2024 6:48 AM SPECIAL INVESTIGATION UNIT INVESTIGATOR Legal Sex Female 4:23 PM CDT Gender Identity Not on file Sexual Orientation Not on file Last Filed Vital Signs Vital Sign Reading Time Taken Comments Blood Pressure 132/79 03/14/2025 7:57 AM CDT Pulse 75 03/14/2025 7:57 AM CDT Temperature 36.8 C (98.3 F) 03/14/2025 7:57 AM CDT Respiratory Rate 16 03/14/2025 7:57 AM CDT Oxygen Saturation 98% 03/14/2025 7:57 AM CDT Inhaled Oxygen Concentration - - Weight 64.7 kg (142 lb 9.6 oz) 03/14/2025 7:57 A M CDT Height 165.1 cm (5' 5) 03/14/2025 7:57 AM CDT Body Mass Index 23.73 03/14/2025 7:57 AM CDT Plan of Treatment Upcoming Encounters Date Type Department Care Team (Late st Contact Info) Description 09/18/2025 7:20 AM SPECIAL INVESTIGATION UNIT INVESTIGATOR Office Visit [facility] [place] [id number] [place] [phone] Tom Black MD [address] [place] [address] [place] [id number] Health Maintenance Due Date Last Done Comments Colorectal Cancer Screening Colonoscopy (10 Years) 1955 Annual Medicare Wellness Visit 2021 Dexa Scan (General) 2021 Mammogram Screening 11/15/2022 11/15/2020 COVID-19 Vaccine ( season) 2025 07/26/2024, 06/15/2023, 06/18/2022, Additional history exists DTaP, Tdap and Td Vaccines (2 - Td or Tdap) 04/29/2031 04/29/2021 RSV Immunization or 60+ Years (1 - 1-dose 75+ series) 2031 Pneumococcal Vaccine: 50+ Years Completed 05/19/2022 Zoster Vaccines Completed 03/31/2023, 01/05/2023 PHQ-2 (Physician [place]) Completed 11/14/2024 Hepatitis C Completed 03/14/2025 Meningococcal B Vaccine Aged Out No l onger eligible based on patient's age to complete this topic Meningococcal Vaccine Aged Out No geovanna el eligible based on patient's age to complete this topic RSV Immunizations Under 20 Months Aged Out No longer eligible based on patient's age to complete this topic Procedures Procedure Name Priority Date/Time Associated Diagnosis Comments CBC W/DIFF AUTOMATED Routine 03/14/2025 12:25 PM CDT Mixed hyperlipidemia LFT elevation COMPREHENSIVE METABOLIC PANEL Routine 03/14/2025 12:25 PM CDT Mixed hyperlipidemia LFT elevation LIPID PANEL Routine 03/14/2025 12:25 PM CDT Mixed hyperlipidemia LFT elevation HEPATITIS B SURFACE AG, EIA Routine 03/14/2025 12:25 PM CDT Mixed hyperlipidemia LFT elevation COLLECTION VENOUS BLOOD VENIPUNCTURE Routine 03/14/2025 8:40 AM CDT Mixed hyperlipidemia LFT elevation HEPATITIS C ANTIBODY Routine 03/14/2025 8:39 AM CDT Mixed hyperlipidemia LFT elevation from Last 3 Months Results * (ABNORMAL) COMPREHENSIVE METABOLIC PANEL (03/14/2025 12:25 PM CDT) GLUCOSE 95 70 - 99 MG/DL 03/14/2025 1:11 PM CDT [facility] BUN 14 7 - 18 MG/DL 03/14/2025 1:11 PM CDT [facility] CREATININE S/P/B 0.83 0.55 - 1.02 MG/DL 03/14/2025 1:11 PM CDT [facility] SODIUM S/P/B 145 136 - 145 MMOL/L 03/14/2025 1:11 PM T [facility] POTASSIUM S/P/B 4.9 3.5 - 5.1 MMOL/L 03/14/2025 1:11 PM T [facility] CHLORIDE S/P/B 104 100 - 108 MMOL/L 03/14/2025 1:11 PM T [facility] CO2 32.4(H) 21 - 32 MMOL/L 03/14/2025 1:11 PM T [facility] CALCIUM S/P/B 9.5 8.5 - 10.1 MG/DL 03/14/2025 1:11 PM T [facility] BILIRUBIN TOTAL S/P/B 1.6(H) 0.2 - 1.2 MG/DL 03/14/2025 1:11 PM T [facility] TOTAL PROTEIN S/P/B 7.1 6.4 - 8.2 G/DL 03/14/2025 1:11 PM T [facility] ALBUMIN S/P/B 4.3 3.4 - 5.0 G/DL 03/14/2025 1:11 PM T [facility] AST 44(H) 15 - 37 U/L 03/14/2025 1:11 PM T [facility] ALT 82(H) 14 - 55 U/L 03/14/2025 1:11 PM T [facility] ALKALINE PHOSPHATASE S/P/B 85 50 - 136 U/L 03/14/2025 1:11 PM T [facility] ANION GAP 8.6 5 - 15 MMOL/L 03/14/2025 1:11 PM CDT [facility] BUN CREATININE RATIO 16.9 6 - 26 03/14/2025 1:11 PM T [facility] A/G RATIO 1.5 1.0 - 2.0 RATIO 03/14/2025 1:11 PM T [facility] GFR ESTIMATE 77(L) >90 ML/MIN/1.7 3 M2 03/14/2025 1:11 PM T [facility] Comment: NOTE: eGFR is not calculated for patients <18 years of age. This is an estimated GFR calculation using the new CKD EPI creatinine equation without race and so does not require a correction factor for race. This estimated GFR should not be used for calculating drug doses. 03/14/2025 12:2 5 PM CDT Tom Black MD LABORATORY Final Result [facility] [address] [place] [address], [place] [phone] * (ABNORMAL) LIPID PANEL (03/14/2025 12:25 PM CDT) CHOLESTEROL 197 <200.0 MG/DL 03/14/2025 1:11 PM CDT [facility] TRIGLYCERIDES 288(H) <150 MG/DL 03/14/2025 1:11 PM T [facility] HDL 48 >40.0 MG/DL 03/14/2025 1:11 PM T [facility] LDL (CALCULATED) 91 <100 MG/DL 03/14/2025 1:11 PM T [facility] Comment:CALCULATED USING THE FRIEDEWALD EQUATION NON HDL CHOLESTEROL 149(H) <130 MG/DL 03/14/2025 1:11 PM CDT [facility] CHOL/HDL RATIO 4.1 0.0 - 4.5 03/14/2025 1:11 PM CDT [facility] VLDL CALCULATION 58(H) 5 - 55 MG/DL 03/14/2025 1:11 PM CDT [facility] LIPID INTERPRETATION 03/14/2025 1:11 PM CDT [facility] Comment: [facility] REPORT RECOMMENDATIONS: ADULT CHILD LOW RISK: CHOLESTEROL <200 <170 TRIGLYCERIDE <150 --- HDL >=60 --- LDL <100 <110 BORDERLINE: CHOLESTEROL 200-239 170-199 TRIGLYCERIDE 150-199 --- HDL 40-59 --- LDL 100-159 110-129 HIGH RISK: CHOLESTEROL >=240 >=200 TRIGLYCERIDE >=200 --- HDL <40 --- LDL >=160 >=130 03/14/2025 12:2 5 PM CDT Tom Black MD LABORATORY Final Result [facility] [address] [place] [address], [place] [phone] * HEPATITIS B SURFACE AG, EIA (03/14/2025 12:25 PM CDT) Pathologist [facility] [place] HEPATITIS B SURFACE AG NON-REACTI VE NON-REACTI VE 03/14/2025 8:09 PM CDT [facility] 03/14/2025 12:2 5 PM CDT Tom Black MD LABORATORY Final Result [facility] [address] [place] [address], [place] [phone] * (ABNORMAL) CBC W/DIFF AUTOMATED (03/14/2025 12:25 PM CDT) WBC 6.60 4.4 - 11.0 x10'3/uL 03/14/2025 12:55 PM CDT [facility] RBC 5.26(H) 4.50 - 5.10 x10'6/uL 03/14/2025 12:55 PM CDT [facility] HGB 15.3 12.3 - 15.3 G/DL 03/14/2025 12:55 PM CDT [facility] HCT 47.0(H) 35.9 - 44.6 % 03/14/2025 12:55 PM CDT [facility] MCV 89.4 80.0 - 96.0 FL 03/14/2025 12:55 PM CDT [facility] MCH 29.1 25.3 - 30.9 PG 03/14/2025 12:55 PM CDT [facility] MCHC 32.6 31.0 - 34.1 G/DL 03/14/2025 12:55 PM CDT [facility] RDW 14.0 12.4 - 15.1 % 03/14/2025 12:55 PM CDT [facility] PLT 226 151 - 353 x10'3/uL 03/14/2025 12:55 PM CDT [facility] MPV 11.4 9.6 - 12.0 FL 03/14/2025 12:55 PM CDT [facility] RBC MORPHOLOGY NORMAL 03/14/2025 12:55 PM CDT [facility] PLT MORPH. NORMAL 03/14/2025 12:55 PM CDT [facility] WBC MORPHOLOGY NORMAL 03/14/2025 12:55 PM CDT [facility] LYMPHOCYTES % 23.5 15.8 - 45.0 % 03/14/2025 12:55 PM CDT [facility] NEUTROPHILS % 65.9 42.1 - 71.9 % 03/14/2025 12:55 PM CDT [facility] MONOCYTES % 7.6 5.7 - 12.5 % 03/14/2025 12:55 PM CDT [facility] EOSINOPHILS 2.0 0.0 - 5.6 % 03/14/2025 12:55 PM CDT [facility] BASOPHILS 0.8 0.0 - 1.3 % 03/14/2025 12:55 PM CDT [facility] ABS. NEUTROPHILS 4.36 1.40 - 6.00 x10'3/uL 03/14/2025 12:55 PM CDT [facility] IMMATURE GRANS % 0.2 0.0 - 0.5 % 03/14/2025 12:55 PM CDT [facility] ABS. LYMPHOCYTES 1.55 0.80 - 4.70 x10'3/uL 03/14/2025 12:55 PM CDT [facility] 03/14/2025 12:2 5 PM CDT Tom Black MD LABORATORY Final Result [facility] [address] [place] [address], * HEPATITIS C ANTIBODY (03/14/2025 8:39 AM CDT) HEPATITIS C AB NON-REACTI VE NON-REACTI VE 03/14/2025 8:37 PM CDT [facility] 03/14/2025 8:39 AM CDT Tom Black MD LABORATORY Final Result [facility] [address] [place] [address], from Last [address] [facility] Care Teams Wildlife Biology Technician Relationship Specialty [place] [id number] [address] PCP - General INTERNAL MEDICINE 10/24/24
--- OUTSIDE RECORDS SUMMARY | 2025-04-10 10:49 | XMS_ITS | Data Portability ---
Author Organization [facility] [place] Address [address] [place] [address] Care Team Providers Care Physical Therapist Center Manager Name Role Phone HARMAN SIFUENTES Primary Care Provider Assessment Encounter Date Assessment Date Assessment LastModified by Organization Details LastModified Time 04/02/2023 04/02/2023 Annual gynecological exam performed. Patient will come back in a year unless there are new symptoms. Not available 04/02/2023 10:03:31 Plan of Treatment Reminders Order Date Submit Date Provider Last Modified By Organization Details Last Modified Time Details Appointments None recorded. Lab None recorded. Referral None recorded. Procedures None recorded. Surgeries None recorded. Imaging None recorded. Medication Orders estradiol 0.01% (0.1 mg/gram) vaginal cream 2023 024 [facility] #[id number], [address] [place] [address], [address], 4 23:27:04 Patient TargetsNo targets recorded. Patient InstructionsNo instructions recorded. Reason for Referral None Reported. Results Created Date Observation Date Name Description Value Unit Range Abnormal Flag Note LastModifiedBy Organization Detail LastModifiedTime 03/30/20 24 03/30/2024 CULTU RE: URINE result report SEE RESULT S BELOW Test: Cultu re: Urine Speci men Sourc e: Urine - Clean Catch Speci men Type: Urine Speci men Date: 2023 1733 Resul t Date: 2023 0021 Resul t Statu s: Final resul t Abnor mal: No Resul ting Lab: [facility] [address] [facility] [address] Tel: CULTU RE ----- ----- ----- --- No growt h in 1 day (dete ction level of 10,00 0 colon ies / ml.) Not Available [facility] (Lab) [address], [place], [address], 04/01/2024 01:25:41 Result Notes None recorded. Procedures Surgical History Date Name Laterality Status Provider Name and Address Organization Details Recorded Time 03/25/20 24 Date of Last Colonoscopy completed Sil Mcneill [facility] 03/30/2024 15:24:40 09/21/19 21 Date of Last Mammogram completed Cassandra Mayorga [facility] 04/02/2023 10:12:28 09/21/19 10 Date of Last Pap Smear completed Cassandra Mayorga [facility] 04/02/2023 10:12:01 09/21/19 10 Vaginal hysterectomy completed SAMY OLGUIN MD [address], [place], [address], [facility] 03/30/2024 15:55:12 Breast augmentation w/implt completed Nayeli James [facility]- [address], [place], [address], [facility] 04/02/2023 10:34:50 Imaging Results None recorded. Procedure Notes None recorded. Medical Equipment None Reported. Allergies No known drug allergies Medications Name Sig Start Date Stop Date Status Note LastModified by Organization Details LastModified Time atorvastatin 20 mg tablet Take 1 tablet every day by oral route. 03/30 completed Not Available Not Available Not Available atorvastatin 10 mg tablet TAKE 1 TABLET BY MOUTH EVERY DAY active Not Available Not Available No t Available estradiol 0.01% (0.1 mg/gram) vaginal cream INSERT 1 G BY VAGINAL ROUTE. active Not Available Not Available No t Available Vitamin D active Not Available Not Jillian ilable Not Available aspirin 81 mg capsule Take 1 capsule every day by oral route. active Not Available Not Available No t Available Centrum Adults active Not Available Not Available Not Available Vitals Date Recorded Body height Body mass index (BMI) Body weight Systolic And Diastolic Provider Name and Address Organization Details Last Updated DateTime 03/30/2024 167.64 cm 22.8 kg/m2 27265.52 g 147/79 mm[Hg] Sil Mascorroclarence [facility] 03/30/2024 15:23:30 Date Recorded Body height Body mass index (BMI) Body weight Systolic And Diastolic Provider Name and Address Organization Details Last Updated DateTime 04/02/2023 167.64 cm 22.8 kg/m2 40180.52 g 142/81 mm[Hg] Cassandra Mukesh [facility] 04/02/2023 10:10:53 Date Recorded Body height Body mass index (BMI) Body weight Systolic And Diastolic Provider Name and Address Organization Details Last Updated DateTime 07/06/2024 167.64 cm 22.9 kg/m2 49477.12 g 144/76 mm[Hg] Francine Omer [facility] 07/06/2024 09:43:52 Social History Question Answer Notes LastModified by Organizat ion Details LastModified Time Tobacco Smoking Status Never Smoker Cassandra Mukesh [facility], [facility] 04/02/2023 10:14:09 Are You Blind Or Do You Have Difficulty Seeing? No Information n ot available 03/30/2024 What Is Your Level Of Caffeine Consumption? Moderate Information not available 03/30/2024 How Much Tobacco Do You Chew? None Information not available 03/30/2024 In The 14 Days Before Symptom Onset, Have You Had Close Contact With A Laboratory-confirm ed COVID-19 While That Case Was Ill? No Information n ot available 04/02/2023 In The 14 Days Before Symptom Onset, Have You Had Close Contact With A Person Who Is Under Investigation For COVID-19 While That Person Was Ill? No Information not available 04/02/2023 Have You Been To An Area Known To Be High Risk For COVID-19? No Information not available 04/02/2023 Are You Deaf Or Do You Have Serious Difficulty Hearing? No Information not available 03/30/2024 What Type Of Diet Are You Following? REGULAR Information n ot available 03/30/2024 What Is The Highest Grade Or Level Of School You Have Completed Or The Highest Degree You Have Received? [id number] Information not available 03/30/2024 Are There Any Guns Present In Your Home? No Information not available 03/30/2024 Do You Use Protection During Sex? No Information not available 03/30/2024 Do You Use Your Seat Belt Or Car Seat Routinely? Yes Information not available 03/30/2024 Do You Have Smoke And Carbon Monoxide Detectors In Your Home? Yes Information not available 03/30/2024 How Much Tobacco Do You Smoke? No Information not available 03/30/2024 Do You Use Sunscreen Routinely? No Information not available 03/30/2024 Have You Used IV Drugs? No Information not available 03/30/2024 Sex: Unknown Functional Status Question Answer Note LastModified by [employer] ion Details LastModified Time Do you use any illicit or recreational drugs? No Information not available 04/02/2023 What is your level of alcohol consumption? Occasional Information not available 04/02/2023 Are you able to walk? YESWOREST Information not available 03/30/2024 What is your occupation? Retired Information not available 03/30/2024 What is your exercise level? Occasional Information not available 03/30/2024 Mental Status Question Answer Note LastModified by Organization D etails LastModified Time Do you feel stressed (tense, restless, nervous, or anxious, or unable to sleep at night)? [id number] Information not available 03/30/2024 Family History Nothing Reported. Medical History Condition Response Other Y History of abnormal pap Y Cancer Y Anemia Y High Cholesterol Y Gynecological History Statement/Question Response Abnormal Pap Y Date of Last Mammogram 09/21/2020 STIs/STDs Y HPV Vaccine N Current Control Method Hysterectom y Date of Last Colonoscopy 03/25/2024 Most Recent Bone Density Sexually Active? N Menses Monthly N Date of Last Pap Smear 09/21/2009 Sexual Problems? N LMP Unknown Obstetrics History GPAL:G 3 P 3 0 0 3 Type Value Full Term 3 Living 3 Total 3 Past Encounters Encounter ID Performer Location Encounter Start Date Encounter Closed Date Diagnosis/Indication Diagnosis SNOMED-CT Code Diagnosis ICD10 Code Diagnosis Note [id number] Nayeli James [facility] [address] [address] 04/02/2023 09:48:21 04/02/2023 10:52:11 Gynecologic examination 23619868 Z01.419 Take Calcium with Vitamin D 12-1500mg daily. Do monthly self breast exams. It is advised to get annual flu shot in the fall and she could obtain at [facility] or [facility] clinic. If you haven't received the Tdap vaccine in the last 10 years you should obtain one as well. Have mammogram yearly, bone density every 2-3 years and colonoscop y every 5-10 years depending on findings and history. Engage in daily exercise of low impact aerobic exercise 45-60 minutes 4-5 times weekly. Avoid tobacco and illicit drugs as well as using moderation with alcohol intake less than 1-2 8 oz beverages daily. This lifestyle behavior pattern will lead to less health conditions and longer life span. If BMI greater than 25 weight watchers or dietary consult advised. Questions have been answered. Patient appears to understand instructio ns, but if you have any further questions call or respond to this email Pap/hpv USPSTF recommends against screening for cervical cancer in women older than 65yo, those who've had a hysterecto my for non-cancer indication s, & who have had adequate prior screening & are not otherwise at high risk for cervical cancer. No abn since 1984 cryo-we agreed to d/c pap/hpv screening after discussing guidelines and current risk factors. STD Screen declinedGe netic Screen discussedC olon Screen UTD PCPDexa Screen UTD PCPRoutine Labs UTD PCPMammo UTD PCPCBE done-impla ntsRTO WWE q2yr or PRN if any REAL ESTATE INTERN related issues. [id number] SAMY OLGUIN MD [place] [address] [address] 03/30/2024 15:13:59 03/31/2024 04:41:41 Genitourinary syndrome of menopause [id number] N95.8 - vulvar irritation and superficia l dyspareuni a x at least 6 months; 2x episodes of postcoital bleeding- patient denies inciting event, does report long period of abstinence prior to restarting sexual activity- exam significan t for vulvar and vaginal atrophy, intact vaginal cuff- sample taken from vaginal cuff for pap smear due to postcoital bleeding- UA c/w possible UTI, will send for culture- likely due to genitourin taryn syndrome of menopause- will initiate vaginal estrogen therapy; 3x per week for 1 month, followed by 1x per week for maintenanc e therapy- rtc 3 months for med check Dyspareunia [id number] N94 .10 [id number] SAMY OLGUIN MD [place] [address] [address] 07/06/2024 09:30:11 07/06/2024 10:11:56 Dyspareunia [id number] N94.10 Genitourin taryn syndrome of menopause [id number] N95.8 - vulvar irritation and superficia l dyspareuni a x at least 6 months; 2x episodes of postcoital bleeding- patient denies inciting event, does report long period of abstinence prior to restarting sexual activity- all symptoms improved with vaginal estrogen; patient has d/c'd use at this time due to improvemen t- discussed intermitte nt use of vaginal estrogen as needed if symptoms recur- rtc 6 months for WWE Health Concerns Section Related Observation LastModified by Organization Detai ls LastModified Time None Recorded Concern Status LastModified by Organization Details LastModified Time None Recorded Advance Directives Directive None Recorded Payers Insurance Date Sequence Insurance Name Policy Number Policy Nunes Covered Member ID Nunes Member ID Guarantor Name 07/04/2024 1 [employer] 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 Post-MenopausalRepo rted bypatient.Menopausa l Symptoms:no menopausal symptoms; normal vaginal lubrication Vaginal Bleeding:history of menopause having occurred; no history of post menopausal bleeding Urinary Symptoms:no hematuria; no incontinence; no nocturia; no urinary frequency Vulva:no genital lesion; no vulvar atrophy Vagina:normal vaginal discharge; no vaginal atrophy Breast:no breast lump; no nipple discharge; no breast pain Sexual Complaints:no sexual complaints Psychological Symptoms:no depression; no anxiety Preventive Measures:encourage regular mammograms starting age 40; encourage self breast examination; encourage regular exercise; encourage no tobacco use; mammogram performed within the past year; history of recent colonoscopy Nayeli James [facility] [address], [place], [address], [facility] 04/02/2023 10:37:35 03/30/2024 text/html Patient presents for vulvar burning and dyspareunia. She reports vulvar burning for the past 6 months. It has been unchanged, not worsening over time. No dysuria or back pain. No hematuria. She also reports dyspareunia and post coital bleeding. She reports internal and deep dyspareunia. She reports spotting x2 the next day after sex. SAMY OLGUIN MD [address], [place], [address], [facility] 03/30/2024 23:27:41 07/06/2024 text/html Patient presents for med check. She was seen in 03/2024 for genitourinary symptoms of menopause and started on vaginal estrogen. She used daily until symptoms improved and has now stopped as her symptoms have resolved. No urinary symptoms or dyspareunia. No vaginal bleeding. Happy with results. SAMY OLGUIN MD [address], [place], [address], [facility] 07/06/2024 10:11:01 OBGyn Episode Ob Episode Information Episode Created Date Number of Fetuses Patient Bloodtype Patient rh Status Prepregnancy Weight lbs Domestic Partner Domestic Partner Phone Father Name Outside Event Sales Specialist Status 04/02/20 23 1 CLOSED Fetus Data First Name Last Name Admitted to NICU Weight (g) Sex Living Outcome Pediatric Complications Fetus ID Race Codes Race Delivery Type M Full Term Vaginal Delivery Marco Calculation Initial Marco Date Initial Exam Date Initial Exam Provider Initial Ultrasound Date Last Menstrual Period Date Ultra Sound Weeks Gestation 0 Eighteen To Twenty Week Marco Update Ultra Sound Date Fundal Height At Umbil Quickening Date Ultra Sound Latest Weeks Gestation Final Marco Confirmed By Final Marco Confirmed Date Final Marco Date Ultra Sound Latest Days Gestation 0 0 Menstrual History Last Menstrual Date Menses Monthly On Bcp Conception Prior Menses Frequency Hcg Plus Date Menarche Onset Age Delivery Information Delivery Date Delivery Type Labor Anesthesia Weeks Gestation Incision Type Labor Labor Length Hrs Delivered By Post Complications Tubal Sterilization Discharge Date Comments 1 40 Discharge Information Feeding Method Contraceptive Method Maternal HG B and HCT Levels Ob Episode Information Episode Created Date Number of Fetuses Patient Bloodtype Patient rh Status Prepregnancy Weight lbs Domestic Partner Domestic Partner Phone Father Name Outside Event Sales Specialist Status 04/02/20 23 1 CLOSED Fetus Data First Name Last Name Admitted to NICU Weight (g) Sex Living Outcome Pediatric Complications Fetus ID Race Codes Race Delivery Type F Full Term Vaginal Delivery Marco Calculation Initial Marco Date Initial Exam Date Initial Exam Provider Initial Ultrasound Date Last Menstrual Period Date Ultra Sound Weeks Gestation 0 Eighteen To Twenty Week Marco Update Ultra Sound Date Fundal Height At Umbil Quickening Date Ultra Sound Latest Weeks Gestation Final Marco Confirmed By Final Marco Confirmed Date Final Marco Date Ultra Sound Latest Days Gestation 0 0 Menstrual History Last Menstrual Date Menses Monthly On Bcp Conception Prior Menses Frequency Hcg Plus Date Menarche Onset Age Delivery Information Delivery Date Delivery Type Labor Anesthesia Weeks Gestation Incision Type Labor Labor Length Hrs Delivered By Post Complications Tubal Sterilization Discharge Date Comments 8 40 Discharge Information Feeding Method Contraceptive Method Maternal HG B and HCT Levels Ob Episode Information Episode Created Date Number of Fetuses Patient Bloodtype Patient rh Status Prepregnancy Weight lbs Domestic Partner Domestic Partner Phone Father Name Outside Event Sales Specialist Status 04/02/20 23 1 CLOSED Fetus Data First Name Last Name Admitted to NICU Weight (g) Sex Living Outcome Pediatric Complications Fetus ID Race Codes Race Delivery Type M Full Term Vaginal Delivery Marco Calculation Initial Marco Date Initial Exam Date Initial Exam Provider Initial Ultrasound Date Last Menstrual Period Date Ultra Sound Weeks Gestation 0 Eighteen To Twenty Week Marco Update Ultra Sound Date Fundal Height At Umbil Quickening Date Ultra Sound Latest Weeks Gestation Final Marco Confirmed By Final Marco Confirmed Date Final Marco Date Ultra Sound Latest Days Gestation 0 0 Menstrual History Last Menstrual Date Menses Monthly On Bcp Conception Prior Menses Frequency Hcg Plus Date Menarche Onset Age Delivery Information Delivery Date Delivery Type Labor Anesthesia Weeks Gestation Incision Type Labor Labor Length Hrs Delivered By Post Complications Tubal Sterilization Discharge Date Comments 6 40 Discharge Information Feeding Method Contraceptive Method Maternal HG B and HCT Levels
--- OUTSIDE RECORDS SUMMARY | 2025-04-10 10:49 | XMS_ITS | Encounter Summary ---
Author Organization [facility] Address [facility] [place] [address] Care Team Providers Care Family Consultant Name Role Phone Tom Black MD Primary Care Provider [phone] Reason for Visit * Reason Onset Date Comments Lab Results 04/07/2025 Encounter Details Date Type Department Care Team (Late st Contact Info) Description 04/07/2025 Telephone [facility] Family & Internal Medicine [facility] [address] [place] [address] [place] [address] [facility] [address] [place] [address] Lab Results Social History Tobacco Use Types Packs/Day Years Used Date Smoking Tobacco: Former Cigarettes Smokeless Tobacco: Never Alcohol Use Standard Drinks/Week Comments Yes 0 (1 standard drink = 0.6 oz pur e alcohol) OCC PHQ-2 Answer Date Recorded Patient Health Questionnaire-2 Score 0 11/14/2024 Comments No Sex and Gender Information Value Date Recorded Sex Assigned at Female 10/26/2024 6:48 AM [employer] 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 documented in this encounter Plan of Treatment Upcoming Encounters Date Type Department Care Team (Late st Contact Info) Description 09/18/2025 7:20 AM [employer] PROFESSIONAL Office Visit [facility] Family & Internal Medicine [facility] [address] [place] [address] [place] [address] [address] documented as of this encounter Visit Diagnoses Not on filedocumented in this encounter Care Teams Family Consultant Relationship Specialty [place] [address] [facility] [address] [place] [address] PCP - General INTERNAL MEDICINE 10/24/24 documented as of this encounter
[2025-04-10 12:12] LABS: Alanine Aminotransferase 59 U/L (6-35); Albumin Level 4.6 g/dL (3.5-5.1); Alkaline Phosphatase 72 U/L (38-126); Aspartate Amino Transferase 52 U/L (14-36); Bilirubin,Total 1.3 mg/dL (0.2-1.3); Total Protein 7.6 g/dL (6.3-8.2)
[2025-04-10 12:13] LABS: Iron 79 ug/dL (37-170)
[2025-04-10 12:24] LABS: Percent Iron Saturation 23 % (20-50)
[2025-04-10 12:56] LABS: Ferritin 52.10 ng/mL (11.1-264)
[2025-04-11 07:09] LABS: GGT 8 IU/L (0-60)
[2025-04-12 09:08] LABS: ANA by IFA Rfx Titer/Pattern Negative (.)
== END 2025-04-10 10:36 | disposition home or self-care (01) ==
PROVIDERS: PCP Internal Medicine; Visit Provider Nurse Practitioner Family
DX: R79.89 Other specified abnormal findings of blood chemistry (principal); E80.6 Other disorders of bilirubin metabolism
CPT/HCPCS: 36415; 80076; 82103; 82104; 82390; 82728; 82977; 83540; 83550; 86015; 86038; 86376; 86381